=== PATIENT | male | born 1955 | race Caucasian/White ===

== ENCOUNTER 2017-10-30 15:56 | Emergency (ER) | payer MEDICARE, MEDICAID ==
--- NOTE | 2017-10-30 16:14 | ED ---
Shortness of Breath - HPI Summary HPI Summary: This is portia Espinosa documenting for attending Jay Jay Chirinos MD. This patient is a 62 year old M BIBA to [facility] with a chief complaint of SOB when he awoke this afternoon. The patient rates the pain 0/10 in severity. Symptoms alleviated by NC O2. Patient reports anxiety and cough. Patient denies fever and increased edema from baseline. Pt has a history of sleep apnea but his CPAP has been broken for a month. He states he has called but they have not replaced it, this has caused sleep disturbances. Pt believes that the SOB is due to this. No hx of CHF of COPD - History of Current Complaint Chief Complaint: EDShortnessOfBreath Time Seen by Provider: 10/30/17 16:08 Hx Obtained From: Patient Onset/Duration: Lasting Hours, Still Present Timing: Constant Current Severity: Mild Dyspnea At: Rest - Allergy/Home Medications Allergies/Adverse Reactions: Allergies Allergy/AdvReac Type Severity Reaction Status Date / Time metformin Allergy See Comment Verified 10/30/17 16:01 lycra Allergy Blisters Uncoded 10/30/17 16:01 PMH/Surg Hx/FS Hx/Imm Hx Endocrine/Hematology History: Reports: Hx Diabetes Cardiovascular History: Denies: Hx Congestive Heart Failure Respiratory History: Reports: Hx Sleep Apnea Denies: Hx Chronic Obstructive Pulmonary Disease (COPD) GI History: Denies: Hx Gastrointestinal Bleed Musculoskeletal History: Denies: Hx Congenital Bone Abnormalities Psychiatric History: Denies: Hx Attention Deficit Hyperactivity Disorder - Surgical History Surgery Procedure, Year, and Place: tumor removed from spine, hernia repair Infectious Disease History: No Infectious Disease History: Denies: Traveled Outside the [place] in Last 30 Days - Family History Known Family History: Positive: Cardiac Disease, Hypertension, Diabetes Negative: Renal Disease, Respiratory Disease, Seizure Disorder, Blood Disorder - Social History Alcohol Use: Occasionally Substance Use Type: Reports: None Smoking Status (MU): Heavy Every Day Tobacco Smoker Review of Systems Negative: Fever Positive: Shortness Of Breath, Cough Negative: Edema All Other Systems Reviewed And Are Negative: Yes Physical Exam - Summary Physical Exam Summary: Appearance: morbidly obese, no pain distress Skin: warm, dry, reflects adequate perfusion Head/face: normal Eyes: EOMI, FLORES ENT: normal Neck: supple, non-tender, no JVD Respiratory: CTA, breath sounds present Cardiovascular: RRR, pulses symmetrical Abdomen: non-tender, soft Bowel Sounds: present Musculoskeletal: 3+ bilateral pitting edema, strength/ROM intact Neuro: normal, sensory motor intact, A&Ox3 Triage Information Reviewed: Yes Vital Signs On Initial Exam: Initial Vitals Temp Pulse Resp BP Pulse Ox 97.3 F 75 17 161/77 99 10/30/17 15:57 10/30/17 15:57 10/30/17 15:57 10/30/17 15:57 10/30/17 15:57 Vital Signs Reviewed: Yes Diagnostics - Vital Signs Vital Signs Temp Pulse Resp BP Pulse Ox 10/30/17 15:57 97.3 F 75 17 161/77 99 - Laboratory Result Diagrams: 10/30/17 16:15 10/30/17 16:15 Lab Statement: Any lab studies that have been ordered have been reviewed, and results considered in the medical decision making process. - Radiology CXR Radiology Interpretation Completed By: ED Physician - EKG 1641 EKG Rhythm: Sinus Rhythm - at 77 BPM EKG Interpretation: normal axis and normal intervals Re-Evaluation - Re-Evaluation First Eval Re-Evaluation Time: 17:11 Change: Unchanged Comment: The company that provides the patient with his CPAP was contacted and they have agreed to get in contact with him in the morning tomorrow during regular business hours. Course/Dx - Course Assessment/Plan: The patient is feeling better after medications. He was given medication for anxiety and a breathing treatment which resolved symptoms. He currently has an oxygen saturation of 97% on room air. [facility] will contact him in the morning to get him a new machine. He understand this and will work with them when the contact him. Patient is requesting an inhaler. - Diagnoses Provider Diagnoses: Anxiety, LINDA (obstructive sleep apnea), Dyspnea, Elevated blood pressure reading Discharge - Sign-Out/Discharge Documenting (check all that apply): Patient Departure - Discharge Plan Condition: Improved Disposition: HOME Prescriptions: Albuterol HFA INHALER* [Ventolin HFA Inhaler*] 1 - 2 puff INH Q4H PRN #1 mdi PRN Reason: Shortness Of Breath Patient Education Materials: Sleep Apnea (DC) Referrals: Farheen Almonte MD [Primary Care Provider] - Additional Instructions: Have your doctor check your blood pressure this week. [facility] should call you first thing in the morning to help you get a new CPAP machine. Return with increased difficulty breathing, fever, new symptoms or other concerns as discussed. Try to perform modest exercise daily up to 30 minutes. Cut back on smoking. Talk to about helping to quit smoking. - Billing Disposition and Condition Condition: IMPROVED Disposition: Home
[2017-10-30] MEDS ORDERED: Albuterol/Ipratropium NEB.SOL* Albuterol 2.5 MG/Ipratropium 0.5 MG 3 ML INH ONE (16:25)
[2017-10-30] MEDS ORDERED: LORazepam TAB(*) 1 MG PO ONE (16:26)
[2017-10-30 16:34] LABS: ABS Basophils 0.1 10^3/ul (0-0.2); ABS Eosinophils 0.1 10^3/ul (0-0.6); ABS Lymphocytes 1.9 10^3/ul (1.0-4.8); ABS Monocytes 0.5 10^3/ul (0-0.8); ABS Neutrophils 3.5 10^3/ul (1.5-7.7); ABS Nucleated RBC 0 10^3/ul; Eosinophil % 1.5 % (0-6); Hematocrit 41 % (42-52); Hemoglobin 13.6 g/dl (14.0-18.0); Lymphocyte % 30.9 % (25-47); Mean Corpuscular HGB Conc 34 g/dl (31-36); Mean Corpuscular Hemoglobin 31 pg (27-31); Mean Corpuscular Volume 92 fL (80-94); Nucleated Red Blood Cells % 0.1; Platelet Count 222 10^3/ul (150-450); Red Blood Count 4.41 10^6/ul (4.00-5.40); Red Cell Distribution Width 15 % (10.5-15)
[2017-10-30 16:40] LABS: INR 0.78 (0.77-1.02)
[2017-10-30 16:49] LABS: EGFR Non-African American 89.8 (>60)
--- NOTE | 2017-10-30 17:24 | RAD ---
Indication: Shortness of breath. 2 views of the chest demonstrate no mediastinal shift. Heart is of normal size and configuration. Lung morris are clear. IMPRESSION: No active cardiopulmonary disease is noted.
--- OUTSIDE RECORDS SUMMARY | 2017-10-30 17:53 | XMS REPORT ---
:1955 External Reference #:[id number] Author Organization Hiren Hooper M.D., [facility] Address [address] [place] [address] Phone [phone] Care Team Providers Name Role Phone Suzy LIRIANO, Farheen Care Team Information Blocking Machine Tender Unavailable Farheen Almonte MD Primary Care Physician Unavailable Payers Type Date Identification Numbers Payment Provider Subscriber Medicare Primary Policy Number: [id number] Medicare [facility] Zaid Dowyoung PayID: [id number] [address] [place] [address] Medicaid Policy Number: [id number] Medicaid [place] Zaid Jean PayID: [id number] [address] [place] [address] Problems Date Description Provider Status Onset: 07/20/2013 Type 1 diabetes mellitus Rob Vargas O.D. Active Onset: 07/25/2013 Borderline glaucoma Rob Vargas O.D. Active Onset: 12/12/2014 Ocular hypertension Rob Vargas O.D. Active Onset: 03/17/2015 Type 2 diabetes mellitus Rob Vargas O.D. Active Onset: 03/17/2015 Incipient senile cataract Rob Vargas O.D. Active Onset: 03/17/2015 Myopia Rob Vargas O.D. Active Onset: 03/17/2015 Regular astigmatism Rob Vargas O.D. Active Onset: 03/17/2015 Presbyopia Rob Vargas O.D. Active Family History Date Family Member(s) Problem(s) Comments Father due to ulcerated bowel () Father Glasses Mother Thyroid Disease Mother Cataract Mother Cancer Mother Heart Disease Mother HTN Social History Type Date Description Comments ETOH Use Rarely consumes alcohol Smoking Patient is a current smoker, smokes every day Allergies, Adverse Reactions, Alerts Date Description Reaction Status Severity Comments 09/23/2016 Metformin active Medications Medication Date Status Form Strength Qnty SIG Indications Ordering Provider Latanoprost 09/23 Active Solution 0.005% 7.5ml 1 drops H40.053 both eyes Tsang, OD every night Levemir Flextouch Active Solution 100Unit/M Inject 30 Unknown /0000 Pen-Injec L Units t Under The Skin Once Daily AT Dinner Amlodipine Active Tablets 5mg Take One Unknown Besylate /0000 Tablet By Mouth Every Day Atorvastatin Active Tablets 80mg Take One Unknown Calcium /0000 Tablet By Mouth Every Day Hydrochlorothiazid Active Tablets 25mg Take One Unknown e /0000 Tablet By Mouth Every Day as Directed Victoza Active Solution 18mg/3ML Inject Unknown /0000 Pen-Injec 0.6MG t Under The Skin Every Day Glyburide Active Tablets 5mg Unknown /0000 Lantus Solostar Active Solution 100Unit/M Stevanovic /0000 Pen-Injec L , Radomir t Latanoprost 09/11 Hx Solution 0.005% 2.5un instill 1 H40.003 its drop into Hooper, - both eyes M.D. 09/23 night No Active 03/13 Hx Unknown Medications /2013 - 03/13 Oxycodone/Acetamin Hx Tablets 5-325mg Unknown ophen / - 03/13 Sulfamethoxazole/T Hx Tablets 800-160mg Unknown rimethoprim DS / - 03/13 Amlodipine Hx Tablets 10mg Stevanovic Besylate /0000 , Radomir - 03/13 Ibuprofen 00 Hx Tablets 800mg Stevanovic /0000 , Radomir - 03/13 Alprazolam Hx Tablets 0.25mg Stevanovic /0000 , Radomir - 03/13 Sertraline HCL Hx Tablets 50mg Stevanovic /0000 , Radomir - 03/13 Simvastatin Hx Tablets 20mg Stevanovic /0000 , Radomir - 03/13 Niacin ER 00 Hx Tablets 500mg Stevanovic /0000 ER , Radomir - 03/13 Loratadine Hx Tablets 10mg Stevanovic /0000 , Radomir - 03/13 Ammonium Lactate Hx Lotion 12% Stevanovic /0000 , Radomir - 03/13 Alprazolam Hx Tablets 0.5mg Unknown /0000 - 03/13 Gemfibrozil Hx Tablets 600mg Stevanovic /0000 , Radomir - 03/13 Ipratropium Hx Solution 0.03% Stevanovic [place] /0000 , Radomir - 03/13 Niaspan Hx Tablets 500mg Stevanovic /0000 ER MD, Radomir - 03/13 Procardia Hx Capsules Unknown - 12/12 Ibuprofen Hx Tablets 800mg Stevanovic /0000 , Radomir - 12/12 Nifedical XL Hx Tablets 60mg 1 tab po Unknown ER 24HR daily - 12/12 Vital Signs Date Vital Result Comment 10/18/2017 Intraocular Pressure Right Eye 20 mmHg Intraocular Pressure Left Eye 20 mmHg 07/19/2017 Intraocular Pressure Right Eye 22 mmHg Intraocular Pressure Left Eye 21 mmHg 03/04/2017 Intraocular Pressure Right Eye 21 mmHg Intraocular Pressure Left Eye 21 mmHg 11/02/2016 Intraocular Pressure Right Eye 20 mmHg Intraocular Pressure Left Eye 20 mmHg 09/23/2016 Intraocular Pressure Right Eye 26 mmHg Intraocular Pressure Left Eye 25 mmHg 03/17/2015 Intraocular Pressure Right Eye 22 mmHg Intraocular Pressure Left Eye 22 mmHg 12/12/2014 Intraocular Pressure Right Eye 21 mmHg Intraocular Pressure Left Eye 19 mmHg 09/11/2014 Intraocular Pressure Right Eye 28 mmHg Intraocular Pressure Left Eye 27 mmHg 03/13/2014 Intraocular Pressure Right Eye 28 mmHg Intraocular Pressure Left Eye 27 mmHg 07/25/2013 Intraocular Pressure Right Eye 22 mmHg Intraocular Pressure Left Eye 22 mmHg Results Description No Information Procedures Date CPT Code Description Status 07/19/2017 01957 Oct, Optic Nerve Completed 07/19/2017 18751 Eye Exam Est Intermediate Completed 03/04/2017 45935 Eye Exam Est Intermediate Completed 11/02/2016 20774 Oct, Optic Nerve Completed 11/02/2016 25358 Visual Field Exam Extended, Unilateral Or Bilateral Completed 11/02/2016 61756 Eye Exam Est Intermediate Completed 09/23/2016 89437 Fundus Photography W/Interpretation & Report Completed 09/23/2016 44549 Ophthalmoscopy Subsequent Completed 09/23/2016 19046 Eye Exam Est Comprehensive Completed 03/17/2015 58981 Eye Exam Est Comprehensive Completed 03/17/2015 55398 Refraction Completed 03/17/2015 45917 Fundus Photography W/Interpretation & Report Completed 09/11/2014 09061 Oct, Optic Nerve Completed 09/11/2014 49449 Visual Field Exam Extended, Unilateral Or Bilateral Completed 09/11/2014 42466 Eye Exam Est Intermediate Completed 03/13/2014 43670 Fundus Photography W/Interpretation & Report Completed 03/13/2014 95876 Eye Exam Est Comprehensive Completed 07/25/2013 48149 Visual Field Exam Extended, Unilateral Or Bilateral Completed 07/25/2013 03369 Eye Exam Est Intermediate Completed 04/29/2011 72863 Fundus Photography W/Interpretation & Report Completed 04/29/2011 36315 Ophthalmoscopy Initial Completed 04/29/2011 56087 Eye Exam New Comprehensive Completed 04/29/2011 42802 Corneal Pachymetry, Unilateral/Bilateral Completed Encounters Type Date Location Provider CPT E/M Dx Office Visit 12/12/2014 3:15p Main Office Rob Vargas O.D. 02676 H40.053 Plan of Care Future Appointment(s):01/19/2018 1:45 pm - Rob Tsang OD at [id number] - Rob Tsang ODH40.053 Ocular hypertension, bilateralFollow up:3 mos VF
[2017-10-30 17:58] VITALS: BP 181/76
== END 2017-10-30 18:17 | disposition home or self-care (01) ==
LOC: ED 15:56
DX: R06.00 Dyspnea, unspecified (principal); F41.9 Anxiety disorder, unspecified; G47.33 Obstructive sleep apnea (adult) (pediatric); R03.0 Elevated blood-pressure reading, without diagnosis of hypertension; F17.200 Nicotine dependence, unspecified, uncomplicated; Z88.8 Allergy status to other drugs, medicaments and biological substances
CPT/HCPCS: 36415; 71046; 80053; 83605; 83880; 84484; 85025; 85610; 86140; 93005; 99283; A9270-GY

== ENCOUNTER 2018-07-14 12:29 | Inpatient (IN) | payer MEDICARE, MEDICAID ==
--- NOTE | 2018-07-14 12:39 | ED ---
Shortness of Breath - HPI Summary HPI Summary: Patient is a 62 y/o M presenting to ED via ambulance with complaints of SOB for the past two weeks. Provider in room at 1219, upon patient's arrival, to evaluate. EMS reports patient was 88 on RA, was given duoneb with improvement, placed on 6 L o2 and o2 sat improved to 94-96. Patient reports non-productive cough, feeling fatigued, and states that he feels hot. No Hx of COPD, CHF, or NM reported, but patient endorses Hx of sleep apnea. Patient uses sleep apnea machine at home but notes that he has not been using it for the past few weeks as it has been broken. When patient was being transferred onto hospital bed, he is noted to have 81 o2 sat RA. Patient's called EMS. Nothing is noted to aggravate Sx. On triage, pain is denied. Home medications and allergies are reviewed. Home Medications Atorvastatin* [Lipitor*] 80 mg PO DAILY 07/14/18 [History Confirmed 07/14/18] Hydrochlorothiazide TAB* [Hydrodiuril TAB*] 25 mg PO DAILY 07/14/18 [History Confirmed 07/14/18] Insulin Detemir [Levemir Flextouch] 15 unit SUBCUT BID 07/14/18 [History Confirmed 07/14/18] Latanoprost 0.005%* [Xalatan 0.005%*] 1 drop BOTH EYES QPM 07/14/18 [History Confirmed 07/14/18] Liraglutide (NF) [Victoza (NF)] 0.6 mg SUBCUT DAILY 07/14/18 [History Confirmed 07/14/18] Tamsulosin CAP* [Flomax CAP*] 0.4 mg PO DAILY 07/14/18 [History Confirmed ] amLODIPine TAB* [Norvasc 5 mg TAB*] 5 mg PO DAILY 07/14/18 [History Confirmed ] glyBURIDE TAB* [Diabeta TAB*] 5 mg PO DAILY 07/14/18 [History Confirmed 07/14/18 ] Allergies Allergy/AdvReac Type Severity Reaction Status Date / Time metformin Allergy See Comment Verified 10/30/17 16:01 lycra Allergy Blisters Uncoded 10/30/17 16:01 - History of Current Complaint Hx Obtained From: Patient, EMS Onset/Duration: Lasting Weeks - past 2 weeks, Still Present Timing: Constant Current Severity: None - pain denied Aggrevating Factors: Nothing Alleviating Factors: EMS Tx, Oxygen Associated Signs & Symptoms: Cough (Nonproductive), Fever - subjective, patient states that he feels warm - Allergy/Home Medications Allergies/Adverse Reactions: Allergies Allergy/AdvReac Type Severity Reaction Status Date / Time metformin Allergy See Comment Verified 10/30/17 16:01 lycra Allergy Blisters Uncoded 10/30/17 16:01 Home Medications: Home Medications Atorvastatin* [Lipitor*] 80 mg PO DAILY 07/14/18 [History Confirmed 07/14/18] Hydrochlorothiazide TAB* [Hydrodiuril TAB*] 25 mg PO DAILY 07/14/18 [History Confirmed 07/14/18] Insulin Detemir [Levemir Flextouch] 15 unit SUBCUT BID 07/14/18 [History Confirmed 07/14/18] Latanoprost 0.005%* [Xalatan 0.005%*] 1 drop BOTH EYES QPM 07/14/18 [History Confirmed 07/14/18] Liraglutide (NF) [Victoza (NF)] 0.6 mg SUBCUT DAILY 07/14/18 [History Confirmed 07/14/18] Tamsulosin CAP* [Flomax CAP*] 0.4 mg PO DAILY 07/14/18 [History Confirmed ] amLODIPine TAB* [Norvasc 5 mg TAB*] 5 mg PO DAILY 07/14/18 [History Confirmed ] glyBURIDE TAB* [Diabeta TAB*] 5 mg PO DAILY 07/14/18 [History Confirmed 07/14/18 ] PMH/Surg Hx/FS Hx/Imm Hx Endocrine/Hematology History: Reports: Hx Diabetes Cardiovascular History: Denies: Hx Congestive Heart Failure Respiratory History: Reports: Hx Sleep Apnea Denies: Hx Chronic Obstructive Pulmonary Disease (COPD) GI History: Denies: Hx Gastrointestinal Bleed Musculoskeletal History: Denies: Hx Congenital Bone Abnormalities Psychiatric History: Denies: Hx Attention Deficit Hyperactivity Disorder - Surgical History Surgery Procedure, Year, and Place: tumor removed from spine, hernia repair - Family History Known Family History: Positive: Cardiac Disease, Hypertension, Diabetes Negative: Renal Disease, Respiratory Disease, Seizure Disorder, Blood Disorder - Social History Alcohol Use: Occasionally Substance Use Type: Reports: None Smoking Status (MU): Heavy Every Day Tobacco Smoker Review of Systems Positive: Fever - subjective, patient reports feeling warm , Fatigue Positive: Shortness Of Breath, Cough - non productive All Other Systems Reviewed And Are Negative: Yes Physical Exam - Summary Physical Exam Summary: Appearance: Ill-appearing, no pain distress, obese, poor hygiene, strong odor of urine, speaks in short bursts, visibly fatigued Skin: Warm, color reflects adequate perfusion, dry Head: Normal Head/Face inspection, atraumatic Eyes: Conjunctiva clear ENT: Normal inspection Neck: Supple, no nodes, no JVD Respiratory: audible wheezes, expiratory wheezes throughout, speaks in short bursts Cardio: RRR, No murmur, pulses normal, brisk capillary refill Abdomen: Soft, nontender Bowel sounds: Present Musculoskeletal: Strength Intact/ROM intact, no calf tenderness. Non-pitting edema in lower extremities. Psychological: Normal Neuro: Alert, muscle tone normal, no focal deficit Triage Information Reviewed: Yes Vital Signs On Initial Exam: Initial Vitals Temp Pulse Resp BP Pulse Ox 99.1 F 97 28 118/84 96 07/14/18 12:35 07/14/18 12:35 07/14/18 12:35 07/14/18 12:35 07/14/18 12:35 Vital Signs Reviewed: Yes Diagnostics - Laboratory Result Diagrams: 07/14/18 12:41 07/14/18 12:41 Lab Statement: Any lab studies that have been ordered have been reviewed, and results considered in the medical decision making process. - Radiology CHEST X-RAY Radiology Interpretation Completed By: Radiologist Summary of Radiographic Findings: IMPRESSION: PULMONARY VASCULAR CONGESTION. THIS REPORT WAS REVIEWED BY DR. WALKER. - EKG 1339 Cardiac Rate: NL - rate of 97 BPM EKG Rhythm: Sinus Rhythm ST Segment: Non-Specific Summary of EKG Findings: EKG showed sinus rhythm with rate of 97 BPM, normal AVIVCT, normal QTc, non-specific ST, no acute changes. Re-Evaluation - Re-Evaluation First Eval Re-Evaluation Time: 13:42 Comment: Aware of trop of 0.05 at this time. Course/Dx - Course Course Of Treatment: Patient is a 62 y/o M presenting to ED via ambulance with complaints of SOB for the past two weeks. Provider in room at 1219, upon patient 's arrival, to evaluate. EMS reports patient was 88 on RA, was given duoneb with improvement, placed on 6 L o2 and o2 sat improved to 94-96. Patient reports non-productive cough, feeling fatigued, and states that he feels hot. No Hx of COPD, CHF, or NM reported, but patient endorses Hx of sleep apnea. Patient uses sleep apnea machine at home but notes that he has not been using it for the past few weeks as it has been broken. When patient was being transferred onto hospital bed, he is noted to have 81 o2 sat RA. On physical exam, patient is noted to be ill-appearing with poor hygeine, strong odor of urine. Patient is obese, speaking in short bursts, appears fatigued. Audible wheezes, expiratory wheezes throughout. Non-pitting edema in the lower extremities. CXR IMPRESSION: PULMONARY VASCULAR CONGESTION. EKG showed sinus rhythm with rate of 97 BPM, normal AVIVCT, normal QTc, non-specific ST, no acute changes. Labs showed WBC 7, Hgb 13.8, D-dimer 305, sodium 131, potassium 2.9, chloride 90, BUN/creatinine 21.5, glucose 240, lactic acid 1.1, calcium 8.5 , AST 151, ALT 71, total creatinine kinase 7711, CK-MB 9, trop 0.05, CRP 322.49 , BNP 59. First ABG showed pH 7.5, pO2 121, HCO3 32.1, O2 sat 98.5, base excess 9.2. Second ABG showed 7.47 pH pCO2 49, pO2 51, HCO3 32.7, O2 saturation 86.1, base excess 10.4. During ED course, patient received duoneb 1 neb INH, potassium chloride 10 meq/50 ml Ivpremix, 2 bags ordered. Patient's case was discussed with Dr. Campoverde at 1353, Dr. Campoverde accepts for admission. - Diagnoses Provider Diagnoses: Respiratory distress, Hypoxia, Hypokalemia, Elevated CK, Poorly controlled diabetes mellitus - Physician Notifications Discussed Care of Patient With: Odilia Campoverde Time Discussed With Above Provider: 13:53 Instructed by Provider To: Other - Patient's case was discussed with Dr. Campoverde at 1353, Dr. Campoverde accepts for admission. Discharge - Sign-Out/Discharge Documenting (check all that apply): Patient Departure - admit All imaging exams completed and their final reports reviewed: Yes Patient Received Moderate/Deep Sedation with Procedure: No - Discharge Plan Condition: Good Disposition: ADMITTED TO [facility] - Attestation Statements Document Initiated by Scribe: Yes Documenting Scribe: MAMADOU SANDERSON Provider For Whom Scribe is Documenting (Include Credential): KIMBERLY WALKER MD Scribe Attestation: MAMADOU Dickey, scribed for KIMBERLY WALKER MD on 07/14/18 at 1915. Status of Scribe Document: Ready
[2018-07-14] MEDS ORDERED: Albuterol/Ipratropium NEB.SOL* Albuterol 2.5 MG/Ipratropium 0.5 MG 3 ML INH ONE (12:40)
[2018-07-14 12:58] LABS: ABS Basophils 0 10^3/ul (0-0.2); ABS Eosinophils 0 10^3/ul (0-0.6); ABS Lymphocytes 1.1 10^3/ul (1.0-4.8); ABS Monocytes 0.5 10^3/ul (0-0.8); ABS Neutrophils 5.4 10^3/ul (1.5-7.7); ABS Nucleated RBC 0 10^3/ul; Eosinophil % 0 %; Hematocrit 40 % (36-46); Hemoglobin 13.8 g/dL (14.0-18.0); Lymphocyte % 15.9 %; Mean Corpuscular HGB Conc 34 g/dL (31-36); Mean Corpuscular Hemoglobin 30 pg (27-31); Mean Corpuscular Volume 89 fL (80-94); Mean Platelet Volume 9.7 fL (7.4-10.4); Nucleated Red Blood Cells % 0; Platelet Count 171 10^3/uL (150-450); Red Blood Count 4.56 10^6 /uL (4.18-5.48); Red Cell Distribution Width 14 % (10.5-15)
[2018-07-14 13:05] LABS: INR 1.01 (0.77-1.02)
[2018-07-14 13:32] LABS: Albumin 3.4 g/dL (3.2-5.2); BUN/Creatinine Ratio 21.5 (8-20); C Reactive Protein 322.49 mg/L (<8.01); Calcium 8.5 mg/dL (8.6-10.3); EGFR African American 84.5 (>60); EGFR Non-African American 69.8 (>60); Globulin 3.3 g/dL (2-4); Potassium 2.9 mmol/L (3.5-5.0); Total Bilirubin 0.7 mg/dL (0.2-1.0); Total Protein 6.7 g/dL (6.4-8.9)
[2018-07-14 13:39] LABS: Troponin I 0.05 ng/mL (<0.04)
[2018-07-14] MEDS: KCL 10 MEQ/50 ML IVPREMIX* 10 MEQ/50 ML BAG IV SCH ×4 (14:40→20:38)
[2018-07-14 14:43] LABS: Influenza A Molecular POSITIVE (Negative)
[2018-07-14] MEDS ORDERED: PROCHLORPERAZINE INJ 5 MG/ML 2 ML VIAL IV PRN (15:07)
[2018-07-14] MEDS ORDERED: Acetaminophen TAB* 325 MG PO PRN (15:07)
[2018-07-14] MEDS ORDERED: Dextrose 50% Syringe 50 ML* 25 GM/50 ML SYRINGE IV PUSH PRN (15:09)
[2018-07-14] MEDS: Oseltamivir CAP* 75 MG CAP PO SCH ×2 (15:54→21:37)
[2018-07-14 16:25] LABS: Troponin I 0.04 ng/mL (<0.04)
[2018-07-14] MEDS: Enoxaparin(*) 40 MG/0.4 ML SYR SUBCUT SCH (17:11)
--- NOTE | 2018-07-14 18:03 | HP ---
CC: Dr. Almonte; Dr. Delgado HISTORY AND PHYSICAL: DATE OF ADMISSION: 07/14/18 TIME OF EVALUATION: 2:50 p.m. PRIMARY CARE PROVIDER: Dr. Almonte. CONSULTING MAGNETIC PROSPECTING OPERATOR: Dr. Delgado. CHIEF COMPLAINT: Shortness of breath. HISTORY OF PRESENT ILLNESS: Mr. Jean is a 62-year-old male with a past medical history of morbid ob esity with a BMI of 58; type 2 diabetes, on insulin; obstructive sleep apnea; hypertension; hyperlipi demia; colon polyps; tobacco abuse, who presents to the emergency room, brought in by EMS with respir atory distress. At the time of my evaluation, the patient has BiPAP on and he and his are very p oor historians. As far as I can ascertain, the patient has been feeling poorly for 3 weeks and his symptoms have beco me progressively worse. The describes that he was weak and has spent a long time "just lying in his recliner." She states that he soiled himself and was unable to clean himself up. He has become progressively short of breath and had productive cough to the point that for the past 3 days, he has smoked just 1 or 2 cigarettes. He denies fever, chills, nausea, vomiting, diarrhea, but his de scribes that he has been incontinent of urine and stool. He denies chest pain or palpitations. He states that she encouraged him to take care by his [facility] care provider, but he refused and today the shortness of breath got really severe and they moralez d EMS and he was brought into the hospital. As per ED RN (Rosaura White), EMS called Adult Protective Services because the house was described in poor condition with dangerous hoarding situation with "piles of stuff up to the ceiling," multiple ca ts with a strong smell of urine. PAST MEDICAL HISTORY: 1. Morbid obesity with a BMI of 58. 2. Type 2 diabetes. 3. Hypertension. 4. Hyperlipidemia. 5. Obstructive sleep apnea, the patient states his CPAP is broken. 6. Colon polyps, status post colonoscopy and resection at [facility] more than 10 years ago. 7. PTSD. MEDICATION LIST: 1. Amlodipine 5 mg p.o. daily. 2. Atorvastatin 80 mg p.o. daily. 3. Glyburide 5 mg p.o. daily. 4. Hydrochlorothiazide 25 mg p.o. daily. 5. Levemir 15 units subcutaneously b.i.d. 6. Xalatan 0.005% one drop to both eyes at bedtime. 7. Victoza 0.6 mg subcutaneously daily. 8. Tamsulosin 0.4 mg p.o. daily. ALLERGIES: With METFORMIN, the patient had increased lactic acid and with LYCRA, he experienced blis ters. FAMILY HISTORY: Positive for ulcerative colitis. SOCIAL HISTORY: The patient is a smoker since he was a teenager up to 1-1/2 packs a day. He continu ed to smoke through his 3 weeks of shortness of breath and had to cut down a couple days ago. As per , he used to drink a lot, but 8 years ago, he quit. There is no history of drug use. Surrogate decision maker is his , Anna Marie Jean, phone number is [phone]. As described in the HPI, there are concerns for their living situation not only the sanitary situation, but also [facility]. PHYSICAL EXAMINATION GENERAL: The patient is a morbidly obese gentleman, sitting up in the ED stretcher with BiPAP in [facility], in no acute distress. VITAL SIGNS: Temperature 99.1, heart rate is 94, respiratory rate is 20, oxygen saturation is 95% on BiPAP with FiO2 of 50%. HEENT: Pupils are equal. NECK: Short and obese. CHEST: Barrel chest with breath sounds present bilaterally and faint wheezing. ABDOMEN: Morbidly obese with multiple excoriations around the area. Physical examination is very li mited due to his size. EXTREMITIES: There is bilateral lower extremity edema and poor overall hygiene. NEURO: He is alert and oriented x3. He is able to move all 4 extremities and follow commands. DIAGNOSTIC STUDIES/LAB DATA: The patient had a CBC that showed a WBC of 7, hemoglobin of 13.8, donna tocrit of 40, platelets of 171 with 76% neutrophils. INR is 1.01. D-dimer was 305. ABG showed pH o f 7.5 with a pCO2 of 43, paO2 of 121, bicarb of 32, oxygen saturation of 98% and this was done on BiP AP. Chemistry showed a sodium of 131, potassium of 2.9, chloride of 90, bicarb of 32, BUN of 23, cre atinine of 1.07, glucose of 240, lactic acid is 1.1, calcium is 8.5. LFTs showed total bilirubin of 0.7, AST of 151, ALT of 71, alk phos of 69. CPK is 7711, CK-MB is 9, troponin is 0.05, CRP is 322.4, BNP is 59. Influenza A was positive. EKG done on 07/14/18 at 1:39 p.m. showed sinus rhythm at 97 beats per minute with no acute ischemic c hanges. No significant change when compared to his prior EKG from October 2017. Chest x-ray shows pulmonary vascular congestion and there is poor inspiratory effort. So within the limitations of the study, I agree with this reading. ASSESSMENT AND PLAN: Mr. Jean is a 62-year-old male with a past medical history of morbid obesity w ith a BMI of 58; type 2 diabetes; hypertension; hyperlipidemia; obstructive sleep apnea, not on CPAP; colonic polyps; benign prostatic hypertrophy; posttraumatic stress disorder, who presents to the [facility] with complaints of 3 weeks of progressive shortness of breath and cough, who arrives in [facility] emergency room in respiratory distress requiring rescue BiPAP. 1. Acute hypoxemic respiratory failure. Suspect this is multifactorial. He has influenza A and pro bable chronic obstructive pulmonary disease exacerbation, although he was never formally diagnosed wi chronic obstructive pulmonary disease. I also suspect he has obesity hypoventilation syndrome on top of his untreated obstructive sleep apnea. The patient will be admitted to the intensive care [facility] to continue his rescue BiPAP. I discussed with him that if he does not improve, he may require int ubation and he is in agreement with it, "do what you gotta do." 2. Influenza A. The patient will be started on Tamiflu. 3. Acute chronic obstructive pulmonary disease exacerbation. The patient has been a smoker half-a-p ack a day for more than 40 years and although, he has never been diagnosed with chronic obstructive p ulmonary disease, he appears to have it clinically. This exacerbation is caused by influenza. His x -ray showed some vascular congestion, but no discrete infiltrate. He will be continued on bronchodil ators. He will receive steroids, but I do not think antibiotics are indicated at this time. He did meet SIRS criteria with tachycardia and tachypnea, but I believe those were driven mostly by his resp iratory failure and not by sepsis. In any case, I think the source of his infection is viral and I d o not think antibiotics are indicated at this time. 4. Type 2 diabetes. The patient states that he is compliant with his insulin and Victoza. He will be n.p.o. for now due to his respiratory status, so we will give him a low-dose insulin and cover wit h a lispro sliding scale. We will check hemoglobin A1c. 5. Hypertension. It is controlled at this time. I will continue his amlodipine and monitor his blo od pressure. 6. Rhabdomyolysis. Suspect this is secondary to the fact of this morbidly obese patient being confi romain to his recliner for a long time as his states that he was not able to get up and was even in continent. He will receive gentle IV hydration and we will monitor his enzymes and renal function as well as urine output. 7. Possible cor pulmonale. The patient has a long history of tobacco abuse. He has lower extremity edema, mild LFT elevation and this could be secondary to cor pulmonale. His BNP is 59. At this poi nt, with his rhabdomyolysis, I am going to give him gentle IV hydration, but as this improves, we may need to pursue diuresis. I am going to check an echocardiogram to assess his right and left ventricu lar function. 8. Troponin elevation. Suspect this is demand ischemia in the setting of respiratory failure, influ christian, and rhabdomyolysis. The patient has no complaints of chest pain and his EKG shows no acute isc hemic changes. We will add an aspirin and we will trend his troponins. An echocardiogram will be or dered as described above and we will look for wall motion abnormalities. 9. Transaminitis. This could be secondary to fatty liver as the patient is diabetic and morbidly ob blanca. It could be also associated with cor pulmonale with his probable chronic obstructive pulmonary disease. We will check hepatitis serology and when his respiratory status is more stable, we can thi nk about doing a liver ultrasound, but this may be a limited study due to his size. His rhabdomyolys is may also be playing a role in the increase of his transaminases. 10. Hypokalemia. We will replete. 11. Elevated D-dimer. My suspicion for pulmonary embolism is low. I suspect his respiratory failur e is secondary to chronic obstructive pulmonary disease exacerbation and influenza and his D-dimer is only mildly elevated. 12. Skin yeast infection. The patient has poor hygiene and moist secretions in his folds. We will provide hygiene and nystatin. 13. Concern for living conditions. As described in HPI, the patient's home is described as "full of stuff up to the ceiling" and there is concern for the hygiene and structural soundness of the home. A social worker school consultation will be requested. 14. DVT prophylaxis: The patient has a score of 5 on the DVT Prophylaxis Risk Assessment Guide and he will be started on Lovenox. We will avoid SCDs for now due to his lower extremity edema, but as h e continues to improve, we may be able to add it later on. 15. Code status was discussed with the patient. He wishes to be a full code and he is agreeable wit h intubation if necessary. TIME SPENT: Approximately 60 minutes of critical care time was spent to complete this admission. [id number]/CPS #: [id number]
[2018-07-14 18:21] LABS: Glucose 192 mg/dL (70-100)
[2018-07-14 18:32] LABS: Troponin I 0.05 ng/mL (<0.04)
[2018-07-14] MEDS: methylPREDNISolone SOD 40 MG* 1 ML VIAL IV SCH (18:33)
[2018-07-14] MEDS: Insulin LISPRO* 1 UNITS UNIT SUBCUT SCH (18:36)
[2018-07-14] MEDS: Latanoprost 0.005%* 2.5 ml BTL BOTH EYES SCH (18:36)
[2018-07-14 18:40] LABS: Creatine Kinase 6592 U/L (10-223)
[2018-07-14] MEDS: Albuterol/Ipratropium NEB.SOL* Albuterol 2.5 MG/Ipratropium 0.5 MG 3 ML INH SCH ×2 (20:26→23:30)
[2018-07-14] MEDS: Nystatin TOP POWDER* 15 GM BTL TOPICAL SCH (21:37)
[2018-07-14] MEDS: Insulin GLARGINE(*) 1 UNITS UNIT SUBCUT SCH (21:37)
[2018-07-15] MEDS: Insulin LISPRO* 1 UNITS UNIT SUBCUT SCH ×4 (00:55→21:31)
[2018-07-15] MEDS: Albuterol/Ipratropium NEB.SOL* Albuterol 2.5 MG/Ipratropium 0.5 MG 3 ML INH SCH ×4 (03:22→19:07)
[2018-07-15 04:14] LABS: ABS Basophils 0 10^3/ul (0-0.2); ABS Eosinophils 0 10^3/ul (0-0.6); ABS Lymphocytes 0.5 10^3/ul (1.0-4.8); ABS Monocytes 0.4 10^3/ul (0-0.8); ABS Neutrophils 4.5 10^3/ul (1.5-7.7); ABS Nucleated RBC 0 10^3/ul; Eosinophil % 0 %; Hematocrit 41 % (36-46); Hemoglobin 13.6 g/dL (14.0-18.0); Lymphocyte % 9.5 %; Mean Corpuscular HGB Conc 33 g/dL (31-36); Mean Corpuscular Hemoglobin 30 pg (27-31); Mean Corpuscular Volume 90 fL (80-94); Mean Platelet Volume 9.8 fL (7.4-10.4); Nucleated Red Blood Cells % 0; Platelet Count 174 10^3/uL (150-450); Red Blood Count 4.54 10^6 /uL (4.18-5.48); Red Cell Distribution Width 14 % (10.5-15); White Blood Count 5.4 10^3/uL (3.5-10.8)
[2018-07-15 04:31] LABS: BUN/Creatinine Ratio 26.5 (8-20); Calcium 8.5 mg/dL (8.6-10.3); EGFR African American 89.3 (>60); EGFR Non-African American 73.8 (>60); Potassium 3.3 mmol/L (3.5-5.0)
[2018-07-15] MEDS: Lactated Ringers 1000 ML Bag* 1,000 ML IV SCH ×2 (04:41→14:44)
[2018-07-15] MEDS: methylPREDNISolone SOD 40 MG* 1 ML VIAL IV SCH (06:38)
[2018-07-15] MEDS: Tamsulosin CAP* 0.4 MG PO SCH (07:49)
[2018-07-15] MEDS: Insulin GLARGINE(*) 1 UNITS UNIT SUBCUT SCH ×2 (07:50→21:31)
[2018-07-15] MEDS: Oseltamivir CAP* 75 MG CAP PO SCH ×2 (07:50→21:27)
[2018-07-15] MEDS: amLODIPine TAB* 5 MG PO SCH (07:50)
[2018-07-15] MEDS: Atorvastatin* 80 MG TAB PO SCH (07:50)
[2018-07-15] MEDS: Aspirin EC TAB* 81 MG TAB.EC PO SCH (07:50)
--- NOTE | 2018-07-15 11:32 | PN ---
Date of Service: 07/15/18 Critical Care Services: Up in a chair this AM and breathing comfortably. No specific complaints (other than discomfort of kaiser cath). Being treated for influenza because of positive serology. Vital Signs: Temp Pulse Resp BP SpO2 FiO2 99.5 F 90 19 150/89 92 50 Physical Exam: Gen:Alert, oriented. Appears comfortable. Lungs:BS distant. No adventitious sounds. Cardiac: No murmurs. Abdomen: Obese Extremities: No cyanosis. 3+edema both LEs. Skin: Multiple supperficial excoriations Fluid Balance (Past 24 Hours): 07/15/18 06:59 Intake Total 632 Output Total 1225 Balance -593 Weight 367 lb Intake: IV Fluids 632 KCL 161 LR 300 NS (0.9%) 121 Oral Output: Kaiser 1225 Other: # Bowel Movements Estimated Stool Amount Labs: 07/14/18 07/14/18 07/14/18 12:30 12:41 12:41 WBC 7.0 RBC 4.56 Hgb 13.8 L Hct 40 MCV 89 MCH 30 MCHC 34 RDW 14 Plt Count 171 MPV 9.7 Neut % (Auto) 76.7 Lymph % (Auto) 15.9 Forrest % (Auto) 7.1 Eos % (Auto) 0 Baso % (Auto) 0.3 Absolute Neuts (auto) 5.4 Absolute Lymphs (auto) 1.1 Absolute Monos (auto) 0.5 Absolute Eos (auto) 0 Absolute Basos (auto) 0 Absolute Nucleated RBC 0 Nucleated RBC % 0 INR (Anticoag Therapy) APTT D-Dimer, Quantitative Patient Temperature ABG pH ABG pH (Temp Correct) ABG pCO2 ABG pCO2 (Temp Corrct ABG pO2 ABG pO2 (Temp Correct ABG HCO3 ABG O2 Saturation ABG Base Excess Respiration Rate O2 Delivery Device Ventilator Type Vent Mode FiO2 Inspiratory Time PEEP Pressure Support Pressure Control EPAP IPAP BiPAP Sodium 131 L Potassium 2.9 L Chloride 90 L Carbon Dioxide 32 Anion Gap 9 BUN 23 Creatinine 1.07 Est GFR ( Amer) 84.5 Est GFR (Non-Af Amer) 69.8 BUN/Creatinine Ratio 21.5 H Glucose 240 H POC Glucose (mg/dL) Hemoglobin A1c Lactic Acid Calcium 8.5 L Total Bilirubin 0.70 AST 151 H ALT 71 H Alkaline Phosphatase 69 Total Creatine Kinase 7711 CK-MB (CK-2) 9.0 H Troponin I 0.05 C-Reactive Protein 322.49 B-Natriuretic Peptide Total Protein 6.7 Albumin 3.4 Globulin 3.3 Albumin/Globulin Ratio 1.0 Influenza A (Rapid) Positive A 07/14/18 07/14/18 07/14/18 12:41 12:41 12:41 WBC RBC Hgb Hct MCV MCH MCHC RDW Plt Count MPV Neut % (Auto) Lymph % (Auto) Forrest % (Auto) Eos % (Auto) Baso % (Auto) Absolute Neuts (auto) Absolute Lymphs (auto) Absolute Monos (auto) Absolute Eos (auto) Absolute Basos (auto) Absolute Nucleated RBC Nucleated RBC % INR (Anticoag Therapy) 1.01 APTT 34.0 D-Dimer, Quantitative 305 H Patient Temperature ABG pH ABG pH (Temp Correct) ABG pCO2 ABG pCO2 (Temp Corrct ABG pO2 ABG pO2 (Temp Correct ABG HCO3 ABG O2 Saturation ABG Base Excess Respiration Rate O2 Delivery Device Ventilator Type Vent Mode FiO2 Inspiratory Time PEEP Pressure Support Pressure Control EPAP IPAP BiPAP Sodium Potassium Chloride Carbon Dioxide Anion Gap BUN Creatinine Est GFR ( Amer) Est GFR (Non-Af Amer) BUN/Creatinine Ratio Glucose POC Glucose (mg/dL) Hemoglobin A1c Lactic Acid 1.1 Calcium Total Bilirubin AST ALT Alkaline Phosphatase Total Creatine Kinase CK-MB (CK-2) Troponin I C-Reactive Protein B-Natriuretic Peptide 59 Total Protein Albumin Globulin Albumin/Globulin Ratio Influenza A (Rapid) 07/14/18 07/14/18 07/14/18 12:56 13:07 15:51 WBC RBC Hgb Hct MCV MCH MCHC RDW Plt Count MPV Neut % (Auto) Lymph % (Auto) Forrest % (Auto) Eos % (Auto) Baso % (Auto) Absolute Neuts (auto) Absolute Lymphs (auto) Absolute Monos (auto) Absolute Eos (auto) Absolute Basos (auto) Absolute Nucleated RBC Nucleated RBC % INR (Anticoag Therapy) APTT D-Dimer, Quantitative Patient Temperature Not Reportable Cancelled ABG pH 7.50 H Cancelled ABG pH (Temp Correct) Not Reportable Cancelled ABG pCO2 43 Cancelled ABG pCO2 (Temp Corrct Not Reportable Cancelled ABG pO2 121 H Cancelled ABG pO2 (Temp Correct Not Reportable Cancelled ABG HCO3 32.1 H Cancelled ABG O2 Saturation 98.5 H Cancelled ABG Base Excess 9.2 H Cancelled Respiration Rate 10 Cancelled O2 Delivery Device Bipap Cancelled Ventilator Type Not Reportable Cancelled Vent Mode Not Reportable Cancelled FiO2 50 Cancelled Inspiratory Time Not Reportable Cancelled PEEP Not Reportable Cancelled Pressure Support Not Reportable Cancelled Pressure Control Not Reportable Cancelled EPAP 6 Cancelled IPAP 12 Cancelled BiPAP Not Reportable Cancelled Sodium Potassium Chloride Carbon Dioxide Anion Gap BUN Creatinine Est GFR ( Amer) Est GFR (Non-Af Amer) BUN/Creatinine Ratio Glucose POC Glucose (mg/dL) Hemoglobin A1c Lactic Acid Calcium Total Bilirubin AST ALT Alkaline Phosphatase Total Creatine Kinase CK-MB (CK-2) Troponin I 0.04 H* C-Reactive Protein B-Natriuretic Peptide Total Protein Albumin Globulin Albumin/Globulin Ratio Influenza A (Rapid) 07/14/18 07/14/18 07/15/18 17:47 21:30 00:41 WBC RBC Hgb Hct MCV MCH MCHC RDW Plt Count MPV Neut % (Auto) Lymph % (Auto) Forrest % (Auto) Eos % (Auto) Baso % (Auto) Absolute Neuts (auto) Absolute Lymphs (auto) Absolute Monos (auto) Absolute Eos (auto) Absolute Basos (auto) Absolute Nucleated RBC Nucleated RBC % INR (Anticoag Therapy) APTT D-Dimer, Quantitative Patient Temperature ABG pH ABG pH (Temp Correct) ABG pCO2 ABG pCO2 (Temp Corrct ABG pO2 ABG pO2 (Temp Correct ABG HCO3 ABG O2 Saturation ABG Base Excess Respiration Rate O2 Delivery Device Ventilator Type Vent Mode FiO2 Inspiratory Time PEEP Pressure Support Pressure Control EPAP IPAP BiPAP Sodium Potassium Chloride Carbon Dioxide Anion Gap BUN Creatinine Est GFR ( Amer) Est GFR (Non-Af Amer) BUN/Creatinine Ratio Glucose 192 H POC Glucose (mg/dL) 209 H 304 H Hemoglobin A1c Lactic Acid Calcium Total Bilirubin AST ALT Alkaline Phosphatase Total Creatine Kinase 6592 H CK-MB (CK-2) Troponin I 0.05 H* C-Reactive Protein B-Natriuretic Peptide Total Protein Albumin Globulin Albumin/Globulin Ratio Influenza A (Rapid) 07/15/18 07/15/18 07/15/18 04:03 04:03 04:03 WBC 5.4 RBC 4.54 Hgb 13.6 L Hct 41 MCV 90 MCH 30 MCHC 33 RDW 14 Plt Count 174 MPV 9.8 Neut % (Auto) 83.9 Lymph % (Auto) 9.5 Forrest % (Auto) 6.5 Eos % (Auto) 0 Baso % (Auto) 0.1 Absolute Neuts (auto) 4.5 Absolute Lymphs (auto) 0.5 L Absolute Monos (auto) 0.4 Absolute Eos (auto) 0 Absolute Basos (auto) 0 Absolute Nucleated RBC 0 Nucleated RBC % 0 INR (Anticoag Therapy) APTT D-Dimer, Quantitative Patient Temperature ABG pH ABG pH (Temp Correct) ABG pCO2 ABG pCO2 (Temp Corrct ABG pO2 ABG pO2 (Temp Correct ABG HCO3 ABG O2 Saturation ABG Base Excess Respiration Rate O2 Delivery Device Ventilator Type Vent Mode FiO2 Inspiratory Time PEEP Pressure Support Pressure Control EPAP IPAP BiPAP Sodium 138 Potassium 3.3 L Chloride 96 L Carbon Dioxide 30 Anion Gap 12 H BUN 27 H Creatinine 1.02 Est GFR ( Amer) 89.3 Est GFR (Non-Af Amer) 73.8 BUN/Creatinine Ratio 26.5 H Glucose 290 H POC Glucose (mg/dL) Hemoglobin A1c 11.5 H Lactic Acid Calcium 8.5 L Total Bilirubin AST ALT Alkaline Phosphatase Total Creatine Kinase 5159 H CK-MB (CK-2) Troponin I C-Reactive Protein B-Natriuretic Peptide Total Protein Albumin Globulin Albumin/Globulin Ratio Influenza A (Rapid) Studies: None today Nutrition: Oral diet Impression: Clinically stable. CPK declining, and no evidence of renal injury. Plan: 1. Continue hydration. 2. D/C IV steroids (which should improve glycemic control). 3. Continue Rx for Influenza Critical Care Time: 40 minutes
[2018-07-15 11:59] LABS: Hepatitis B Surface Antigen Nonreactive (Nonreactive)
[2018-07-15 12:21] LABS: Hepatitis C Antibody Nonreactive (Nonreactive)
[2018-07-15] MEDS: Nystatin TOP POWDER* 15 GM BTL TOPICAL SCH ×3 (12:36→21:32)
[2018-07-15] MEDS: Potassium Chloride LIQUID* 20 MEQ PACKET PO SCH (14:44)
[2018-07-15] MEDS: Enoxaparin(*) 40 MG/0.4 ML SYR SUBCUT SCH (16:16)
--- NOTE | 2018-07-15 17:31 | PN ---
Hospitalist Progress Note Date of Service: 07/15/18 HOSPITALIST ADDENDUM Called by RN because patient was more dyspneic and required BiPAP briefly. Now comfortable on nasal cannula 5 liters. Re-evaluated by Dr Delgado at bedside - patient stable to be on 4N at this time, but if decompensates/desaturates will transfer to ICU again. Will continue to monitor in 4N. S/o to Dr Cole.
[2018-07-15] MEDS: Albuterol/Ipratropium NEB.SOL* Albuterol 2.5 MG/Ipratropium 0.5 MG 3 ML INH PRN (17:32)
[2018-07-15] MEDS ORDERED: Insulin LISPRO* 1 UNITS UNIT SUBCUT ONE (18:01)
[2018-07-15] MEDS: Latanoprost 0.005%* 2.5 ml BTL BOTH EYES SCH (18:17)
[2018-07-16] MEDS: Lactated Ringers 1000 ML Bag* 1,000 ML IV SCH ×3 (01:40→21:11)
[2018-07-16] MEDS: Albuterol/Ipratropium NEB.SOL* Albuterol 2.5 MG/Ipratropium 0.5 MG 3 ML INH SCH ×4 (01:46→19:42)
[2018-07-16 06:20] LABS: BUN/Creatinine Ratio 35.6 (8-20); Calcium 8.7 mg/dL (8.6-10.3); EGFR African American 90.3 (>60); EGFR Non-African American 74.6 (>60); Magnesium 2.5 mg/dL (1.9-2.7); Potassium 3.4 mmol/L (3.5-5.0)
[2018-07-16] MEDS: amLODIPine TAB* 5 MG PO SCH (09:40)
[2018-07-16] MEDS: Atorvastatin* 80 MG TAB PO SCH (09:40)
[2018-07-16] MEDS: Oseltamivir CAP* 75 MG CAP PO SCH ×2 (09:40→21:03)
[2018-07-16] MEDS: Potassium Chloride LIQUID* 20 MEQ PACKET PO SCH (09:40)
[2018-07-16] MEDS: Aspirin EC TAB* 81 MG TAB.EC PO SCH (09:40)
[2018-07-16] MEDS: Insulin GLARGINE(*) 1 UNITS UNIT SUBCUT SCH ×2 (09:41→21:04)
[2018-07-16] MEDS: Tamsulosin CAP* 0.4 MG PO SCH (09:41)
[2018-07-16] MEDS: Insulin LISPRO* 1 UNITS UNIT SUBCUT SCH ×4 (09:42→21:04)
[2018-07-16] MEDS ORDERED: Perflutren Lipid Microsphere* 3 ML VIAL ONE (10:39)
[2018-07-16] MEDS: Nystatin TOP POWDER* 15 GM BTL TOPICAL SCH ×3 (11:10→21:05)
--- NOTE | 2018-07-16 14:48 | ECHO ---
Patient: NATHANIEL GOLDSTEIN JR [facility] Rec#: [id number] : 1955 Date: 07/16/2018 Age: 62y Height: 173 cm / 68.1 in Weight: 172 kg / 379.1 lbs Sex: M BSA: 2.69 Room#: 422 Admit Date#: 07/14/2018 Type: Inpatient Referring: RICH JACQUES Reading: Lanre Delgado DO Police Booking Officer: Shannan Grace RDCS CC: Farheen Almonte MD Transthoracic Echocardiogram Indication: Congestive heart failure BP: 120/81 HR: 96 Rhythm: NSR with PACs Findings History: LINDA, smoker, MO, DM. This study was performed with patient sitting upright in a recliner due to respiratory distress. Technical Comments: The study is technically difficult. The study is technically limited due to patient body habitus. The study was technically limited due to the patient's inability to lay in the left lateral decubitus position. Left Ventricle: The left ventricular chamber size is normal. Mild to moderate concentric left ventricular hypertrophy is observed. Global left ventricular wall motion and contractility are within normal limits. Left ventricular systolic function is at the lower limits of normal. The estimated ejection fraction is 50-55%. Abnormal left ventricular diastolic function is observed. Left Atrium: The left atrium is moderately dilated. Right Ventricle: The right ventricle is mildly dilated. The right ventricular global systolic function is moderately reduced. Right Atrium: The right atrium is moderately dilated. Aortic Valve: The aortic valve is trileaflet. The aortic valve leaflets are mildly thickened. There is a trace of aortic regurgitation. There is no evidence of aortic stenosis. Mitral Valve: The mitral valve leaflets are mildly thickened. There is trace to mild mitral regurgitation. There is no evidence of mitral stenosis. Tricuspid Valve: The tricuspid valve leaflets are normal. There is trace tricuspid regurgitation. Unable to estimate the right ventricular systolic pressure. There is no tricuspid stenosis. Pulmonic Valve: The pulmonic valve structure is not well visualized. There is a trace pulmonic regurgitation. There is no pulmonic stenosis. Pericardium: There is no significant pericardial effusion. A pericardial fat pad is visualized. Aorta: There is mild dilatation of the ascending aorta. There is no dilatation of the aortic arch. The aortic root is normal in size. Pulmonary Artery: The main pulmonary artery is not well visualized. Venous: The inferior vena cava is dilated. There is a greater than 50% respiratory change in the inferior vena cava dimension. Contrast: Definity was used to optimize study. 4 mL of diluted Definity were utilized. Intravenous contrast was used to enhance endocardial border definition. Conclusions The left ventricular chamber size is normal. Mild to moderate concentric left ventricular hypertrophy is observed. Global left ventricular wall motion and contractility are within normal limits. Left ventricular systolic function is at the lower limits of normal. The estimated ejection fraction is 50-55%. The left atrium is moderately dilated. The right ventricle is mildly dilated. The right ventricular global systolic function is moderately reduced. Unable to estimate the right ventricular systolic pressure. No significant valvular abnormalities noted The study is technically difficult. Definity was used to optimize study. Compared to prior study from 08/2011, the use of definity makes this study diagnostic Measurements Name Value Normal Range RVIDd (AP) 2D 4.1 cm (0.9 - 2.6) RVDdMajor (2D) 5.6 cm (2.2 - 4.4) RAd ISD 4CH 6.1 cm (3.4 - 4.9) RA (A4C)W 5.2 cm (2.9 - 4.6) IVSd (2D) 1.3 cm (0.6 - 1) LVPWd (2D) 1.2 cm (0.6 - 1) LVIDd (2D) 3.8 cm (3.6 - 5.4) LVIDs (2D) 2.8 cm - LV FS (2D) 26 % (25 - 45) Aortic Annulus 2 cm (1.4 - 2.6) Ao root diameter (2D) 3.3 cm (2.1 - 3.5) Ascending Ao 3.5 cm (2.1 - 3.4) Aortic arch 2.6 cm (1.8 - 3.4) LA dimension (AP) 2D 4.5 cm (2.3 - 3.8) LAd ISD 4CH 6.2 cm (2.9 - 5.3) LA ISD 4CH W 5.7 cm (2.5 - 4.5) Name Value Normal Range MV E-wave Vmax 0.7 m/sec - MV deceleration time 240 msec - MV A-wave Vmax 0.8 m/sec - MV E:A ratio 0.8 ratio - LV septal e' Vmax 0.06 m/sec - LV lateral e' Vmax 0.06 m/sec - LV E:e' septal ratio 11.7 ratio - LV E:e' lateral ratio 11.7 ratio - Name Value Normal Range AV Vmax 1.5 m/sec - AV VTI 29 cm - AV peak gradient 9 mmHg - AV mean gradient 5 mmHg - LVOT Vmax 0.9 m/sec - LVOT VTI 16 cm - LVOT peak gradient 4 mmHg - LVOT mean gradient 2 mmHg - DENI Vmax 0.9 m/sec - Name Value Normal Range IVC diameter 3.3 cm - Name Value Normal Range PV Vmax 1.1 m/sec - PV peak gradient 4 mmHg -
[2018-07-16] MEDS: Enoxaparin(*) 40 MG/0.4 ML SYR SUBCUT SCH (16:04)
--- NOTE | 2018-07-16 16:04 | PN ---
Subjective Date of Service: 07/16/18 Interval History: Mr. Jean is feeling better today. He offers no complaints. Denies SOB or CP. He is eating lunch on my exam. Denies N/V. Not particularly conversational or willing to offer information. No concerns from nursing. Family History: Unchanged from Admission Social History: Unchanged from Admission Past Medical History: Unchanged from Admission Objective Active Medications: Albuterol/Ipratropium (Duoneb (Albuterol 2.5 Mg/Ipratropium 0.5 Mg)) 1 neb INH Q2H PRN SOB/WHEEZING Albuterol/Ipratropium (Duoneb (Albuterol 2.5 Mg/Ipratropium 0.5 Mg)) 1 neb INH [id number] AWAKE [facility] Amlodipine Besylate (Norvasc Tab*) 5 mg PO DAILY [facility] Aspirin (Aspirin Ec Tab*) 81 mg PO DAILY [facility] Atorvastatin Calcium (Lipitor*) 80 mg PO DAILY [facility] Dextrose (D50w Syringe 50 Ml*) 12.5 gm IV PUSH .FOR FS < 60 - SS PRN FS < 60 Enoxaparin Sodium (Lovenox(*)) 40 mg SUBCUT Q24H [facility] Guaifenesin (Robitussin*) 5 ml PO Q6H PRN COUGH Lactated Ringer's (Lactated Ringers 1000 Ml Bag*) 1,000 mls @ 100 mls/hr IV PER RATE [facility] Insulin Glargine (Lantus(*)) 15 units SUBCUT BID [facility] Insulin Human Lispro (Humalog*) 0 units SUBCUT ACHS [facility]; Protocol Latanoprost (Xalatan 0.005%*) 1 drop BOTH EYES QPM [facility] Nystatin (Nystatin Top Powder*) 1 applic TOPICAL TID [facility] Oseltamivir Phosphate (Tamiflu Cap*) 75 mg PO BID [facility] Potassium Chloride (Klor-Con Liquid*) 40 meq PO DAILY [facility] Prochlorperazine Edisylate (Compazine Inj*) 5 mg IV Q6H PRN NAUSEA/VOMITING Tamsulosin HCl (Flomax Cap*) 0.4 mg PO DAILY [facility] Vital Signs - 8 hr 07/16/18 07/16/18 07/16/18 08:00 11:27 12:09 Temperature 98.0 F Pulse Rate 79 80 Respiratory 18 18 18 Rate Blood Pressure 136/44 (mmHg) O2 Sat by Pulse 96 94 Oximetry Oxygen Devices in Use Now: Nasal Cannula - 4L Appearance: Middle-aged obese male sitting in chair in NAD Eyes: No Scleral Icterus Ears/Nose/Mouth/Throat: Mucous Membranes Moist Neck: NL Appearance and Movements; NL JVP, Trachea Midline Respiratory: Symmetrical Chest Expansion and Respiratory Effort, - - Scattered rhonchi throughout Cardiovascular: NL Sounds; No Murmurs; No JVD, RRR Abdominal: NL Sounds; No Tenderness; No Distention Neurological: Alert and Oriented x 3 Lines/Tubes/Other Access: Clean, Dry and Intact Peripheral IV Nutrition: Taking PO's Result Diagrams: 07/15/18 04:03 07/16/18 05:42 Assess/Plan/Problems-Billing Assessment: Mr. Jean is a 62 yo M with PMH of DM2, HTN, HLD, LINDA, and morbid obesity; who presented to the ED with SOB and was found to be in acute respiratory failure requiring BiPAP and admission to the ICU, now on the medical floor. - Patient Problems (1) Acute respiratory failure with hypoxemia Code(s): J96.01 - ACUTE RESPIRATORY FAILURE WITH HYPOXIA Comment: - Presenting with SOB x3 weeks - BiPAP initiated in the ED; now down to 4L NC - Titrate oxygen to maintain sat >90% - Continue prednisone, nebs (2) COPD exacerbation Code(s): J44.1 - CHRONIC OBSTRUCTIVE PULMONARY DISEASE W (ACUTE) EXACERBATION Comment: - No formal diagnosis of COPD, but significant smoking history - Would benefit from formal diagosis with PFTs as an outpatient - Plan as above (3) Influenza A Code(s): J10.1 - FLU DUE TO OTH IDENT INFLUENZA VIRUS W OTH RESP MANIFEST Comment: - Droplet precautions - Continue Tamiflu (4) Rhabdomyolysis Code(s): M62.82 - RHABDOMYOLYSIS Comment: - Secondary to immobility - No evidence of HERBERT - CK is resolving; will continue to trend (5) Transaminitis Code(s): R74.0 - NONSPEC ELEV OF LEVELS OF TRANSAMNS & LACTIC ACID DEHYDRGNSE Comment: - Elevated on admission - Hepatitis panel negative - Unclear etiology; differentials include rhabdomyolysis, fatty liver (6) Diabetes mellitus Code(s): E11.9 - TYPE 2 DIABETES MELLITUS WITHOUT COMPLICATIONS Comment: - Very poor glucose control - A1c 11.5% - Continue Lispro SS; resume glyburide; increase Lantus (7) Hypertension Code(s): I10 - ESSENTIAL (PRIMARY) HYPERTENSION Comment: - Slightly hypertensive, SBP 130-150s - Continue amlodipine; resume HCTZ (8) Hyperlipidemia Code(s): E78.5 - HYPERLIPIDEMIA, UNSPECIFIED Comment: - Continue atorvastatin (9) BPH (benign prostatic hyperplasia) Code(s): N40.0 - BENIGN PROSTATIC HYPERPLASIA WITHOUT LOWER URINRY TRACT SYMP Comment: - Continue tamsulosin (10) DVT prophylaxis Comment: - Lovenox (11) Full code status Code(s): Z78.9 - OTHER SPECIFIED HEALTH STATUS Comment: Status and Disposition: Inpatient. Anticipate d/c home vs [facility] when medically stable. Social work involved d/t poor living conditions. Attending: Figueroa Cole
[2018-07-16] MEDS ORDERED: Potassium Chlor TAB* 10 MEQ TAB.ER PO ONE (16:05)
[2018-07-16] MEDS: Latanoprost 0.005%* 2.5 ml BTL BOTH EYES SCH (16:05)
[2018-07-16] MEDS ORDERED: ALPRAZolam TAB* 0.5 MG ONE (23:33)
[2018-07-16] MEDS: ALPRAZolam TAB* 0.5 MG PO PRN (23:36)
[2018-07-17] MEDS: Albuterol/Ipratropium NEB.SOL* Albuterol 2.5 MG/Ipratropium 0.5 MG 3 ML INH SCH ×4 (00:47→19:22)
[2018-07-17] MEDS: guaiFENesin LIQ* 100 MG/5 ML UDC PO PRN ×2 (04:05→21:51)
[2018-07-17 07:35] LABS: Albumin 3.3 g/dL (3.2-5.2); BUN/Creatinine Ratio 23.6 (8-20); Calcium 8.9 mg/dL (8.6-10.3); EGFR African American 104.5 (>60); EGFR Non-African American 86.3 (>60); Globulin 3.3 g/dL (2-4); Potassium 3.4 mmol/L (3.5-5.0); Total Bilirubin 0.7 mg/dL (0.2-1.0); Total Protein 6.6 g/dL (6.4-8.9)
[2018-07-17] MEDS: Lactated Ringers 1000 ML Bag* 1,000 ML IV SCH (08:00)
[2018-07-17] MEDS ORDERED: Acetaminophen TAB* 325 MG PO PRN (08:26)
[2018-07-17] MEDS ORDERED: Ibuprofen TAB* 600 MG PO PRN (08:28)
[2018-07-17] MEDS: Insulin LISPRO* 1 UNITS UNIT SUBCUT SCH ×4 (09:23→21:59)
[2018-07-17] MEDS: Insulin GLARGINE(*) 1 UNITS UNIT SUBCUT SCH ×2 (09:25→21:51)
[2018-07-17] MEDS: glyBURIDE TAB* 5 MG PO SCH (09:26)
[2018-07-17] MEDS: Potassium Chloride LIQUID* 20 MEQ PACKET PO SCH (09:26)
[2018-07-17] MEDS: amLODIPine TAB* 5 MG PO SCH (09:27)
[2018-07-17] MEDS: Atorvastatin* 80 MG TAB PO SCH (09:27)
[2018-07-17] MEDS: predniSONE TAB* 10 MG PO SCH (09:27)
[2018-07-17] MEDS: Tamsulosin CAP* 0.4 MG PO SCH (09:27)
[2018-07-17] MEDS: Oseltamivir CAP* 75 MG CAP PO SCH ×2 (09:27→21:51)
[2018-07-17] MEDS: Aspirin EC TAB* 81 MG TAB.EC PO SCH (09:27)
[2018-07-17] MEDS: Hydrochlorothiazide TAB* 25 MG PO SCH (09:27)
[2018-07-17] MEDS: Nystatin TOP POWDER* 15 GM BTL TOPICAL SCH ×3 (09:28→22:55)
[2018-07-17] MEDS: ALPRAZolam TAB* 0.5 MG PO PRN (12:36)
[2018-07-17] MEDS ORDERED: Potassium Chlor TAB* 20 MEQ TAB.ER PO ONE (14:33)
[2018-07-17] MEDS ORDERED: Furosemide IV* 10 MG/ML VIAL (40 MG) IV ONE (14:40)
[2018-07-17] MEDS: Latanoprost 0.005%* 2.5 ml BTL BOTH EYES SCH (17:33)
[2018-07-17] MEDS: Enoxaparin(*) 40 MG/0.4 ML SYR SUBCUT SCH (17:33)
--- NOTE | 2018-07-17 18:01 | PN ---
Subjective Date of Service: 07/17/18 Interval History: Mr. Jean is feeling fine today. He is not particularly interested in conversing with me and will only give 1-2 word answers to questions. He denies pain. No CP, SOB, N/V. Has been up in his room with assistance. Nursing expressing some concern about anxiety. He then had some drowsiness after receiving benzos. Family History: Unchanged from Admission Social History: Unchanged from Admission Past Medical History: Unchanged from Admission Objective Active Medications: Acetaminophen (Tylenol Tab*) 650 mg PO Q4H PRN FEVER/PAIN Albuterol/Ipratropium (Duoneb (Albuterol 2.5 Mg/Ipratropium 0.5 Mg)) 1 neb INH Q2H PRN SOB/WHEEZING Albuterol/Ipratropium (Duoneb (Albuterol 2.5 Mg/Ipratropium 0.5 Mg)) 1 neb INH [id number] AWAKE [facility] Alprazolam (Xanax Tab*) 0.5 mg PO BID PRN ANXIETY/INSOMNIA Amlodipine Besylate (Norvasc Tab*) 5 mg PO DAILY [facility] Aspirin (Aspirin Ec Tab*) 81 mg PO DAILY [facility] Atorvastatin Calcium (Lipitor*) 80 mg PO DAILY [facility] Dextrose (D50w Syringe 50 Ml*) 12.5 gm IV PUSH .FOR FS < 60 - SS PRN FS < 60 Enoxaparin Sodium (Lovenox(*)) 40 mg SUBCUT Q24H [facility] Glyburide (Diabeta Tab*) 5 mg PO DAILY [facility] Guaifenesin (Robitussin*) 5 ml PO Q6H PRN COUGH Hydrochlorothiazide (Hydrodiuril Tab*) 25 mg PO DAILY [facility] Ibuprofen (Motrin Tab*) 600 mg PO Q8H PRN PAIN Insulin Glargine (Lantus(*)) 20 units SUBCUT BID [facility] Insulin Human Lispro (Humalog*) 0 units SUBCUT ACHS [facility]; Protocol Latanoprost (Xalatan 0.005%*) 1 drop BOTH EYES QPM [facility] Nystatin (Nystatin Top Powder*) 1 applic TOPICAL TID [facility] Oseltamivir Phosphate (Tamiflu Cap*) 75 mg PO BID [facility] Potassium Chloride (Klor-Con Liquid*) 40 meq PO DAILY [facility] Prednisone (Deltasone Tab*) 30 mg PO DAILY [facility] Prochlorperazine Edisylate (Compazine Inj*) 5 mg IV Q6H PRN NAUSEA/VOMITING Tamsulosin HCl (Flomax Cap*) 0.4 mg PO DAILY [facility] Vital Signs - 8 hr 07/17/18 07/17/18 07/17/18 11:00 12:36 12:48 Temperature 97.6 F 98.5 F Pulse Rate 97 105 Respiratory 22 18 26 Rate Blood Pressure 140/88 143/73 (mmHg) O2 Sat by Pulse 96 94 Oximetry 07/17/18 07/17/18 07/17/18 13:25 15:06 15:57 Temperature 97.7 F Pulse Rate 92 78 Respiratory 20 20 22 Rate Blood Pressure 129/108 (mmHg) O2 Sat by Pulse 94 Oximetry Oxygen Devices in Use Now: Nasal Cannula - 4L Appearance: Middle-aged obese male sitting in chair in NAD Eyes: No Scleral Icterus Ears/Nose/Mouth/Throat: Mucous Membranes Moist Neck: NL Appearance and Movements; NL JVP, Trachea Midline Respiratory: Symmetrical Chest Expansion and Respiratory Effort, - - Scattered rhonchi throughout Cardiovascular: NL Sounds; No Murmurs; No JVD, RRR Abdominal: NL Sounds; No Tenderness; No Distention Extremities: No Edema Neurological: Alert and Oriented x 3, - - Drowsy, but arouses to voice Lines/Tubes/Other Access: Clean, Dry and Intact Peripheral IV Nutrition: Taking PO's Result Diagrams: 07/15/18 04:03 07/17/18 06:48 Assess/Plan/Problems-Billing Assessment: Mr. Jean is a 62 yo M with PMH of DM2, HTN, HLD, LINDA, and morbid obesity; who presented to the ED with SOB and was found to be in acute respiratory failure requiring BiPAP and admission to the ICU, now on the medical floor. - Patient Problems (1) Acute respiratory failure with hypoxemia Code(s): J96.01 - ACUTE RESPIRATORY FAILURE WITH HYPOXIA Comment: - Presenting with SOB x3 weeks - BiPAP initiated in the ED; now down to 4L NC - Titrate oxygen to maintain sat >90% - Continue prednisone, nebs (2) COPD exacerbation Code(s): J44.1 - CHRONIC OBSTRUCTIVE PULMONARY DISEASE W (ACUTE) EXACERBATION Comment: - No formal diagnosis of COPD, but significant smoking history - Would benefit from formal diagosis with PFTs as an outpatient - Plan as above (3) Influenza A Code(s): J10.1 - FLU DUE TO OTH IDENT INFLUENZA VIRUS W OTH RESP MANIFEST Comment: - Droplet precautions - Continue Tamiflu (4) Rhabdomyolysis Code(s): M62.82 - RHABDOMYOLYSIS Comment: - Secondary to sedentary lifestyle - No evidence of HERBERT - CK is resolving; will continue to trend (5) Transaminitis Code(s): R74.0 - NONSPEC ELEV OF LEVELS OF TRANSAMNS & LACTIC ACID DEHYDRGNSE Comment: - Elevated on admission, but resolving - Hepatitis panel negative - Unclear etiology; differentials include rhabdomyolysis, fatty liver (6) Diabetes mellitus Code(s): E11.9 - TYPE 2 DIABETES MELLITUS WITHOUT COMPLICATIONS Comment: - Very poor glucose control - A1c 11.5% - Continue Lispro SS, glyburide; increase Lantus (7) Hypertension Code(s): I10 - ESSENTIAL (PRIMARY) HYPERTENSION Comment: - Normotensive, SBP 120-140s - Continue amlodipine, HCTZ (8) Hyperlipidemia Code(s): E78.5 - HYPERLIPIDEMIA, UNSPECIFIED Comment: - Continue atorvastatin (9) BPH (benign prostatic hyperplasia) Code(s): N40.0 - BENIGN PROSTATIC HYPERPLASIA WITHOUT LOWER URINRY TRACT SYMP Comment: - Continue tamsulosin (10) DVT prophylaxis Comment: - Lovenox (11) Full code status Code(s): Z78.9 - OTHER SPECIFIED HEALTH STATUS Comment: Status and Disposition: Inpatient. Anticipate d/c home vs [facility] when medically stable. Social work involved d/t poor living conditions. Attending: Figueroa Cole
[2018-07-18] MEDS: Albuterol/Ipratropium NEB.SOL* Albuterol 2.5 MG/Ipratropium 0.5 MG 3 ML INH SCH ×2 (02:51→08:08)
[2018-07-18 07:54] LABS: BUN/Creatinine Ratio 24.7 (8-20); Calcium 9.4 mg/dL (8.6-10.3); EGFR African American 123.5 (>60); Potassium 3.3 mmol/L (3.5-5.0)
[2018-07-18] MEDS: Potassium Chloride LIQUID* 20 MEQ PACKET PO SCH (08:11)
[2018-07-18] MEDS: Insulin LISPRO* 1 UNITS UNIT SUBCUT SCH ×4 (08:11→21:06)
[2018-07-18] MEDS: Insulin GLARGINE(*) 1 UNITS UNIT SUBCUT SCH ×2 (08:11→21:09)
[2018-07-18] MEDS: guaiFENesin LIQ* 100 MG/5 ML UDC PO PRN ×2 (08:11→21:04)
[2018-07-18] MEDS: glyBURIDE TAB* 5 MG PO SCH (08:12)
[2018-07-18] MEDS: Aspirin EC TAB* 81 MG TAB.EC PO SCH (08:12)
[2018-07-18] MEDS: Atorvastatin* 80 MG TAB PO SCH (08:12)
[2018-07-18] MEDS: Nystatin TOP POWDER* 15 GM BTL TOPICAL SCH ×3 (08:12→21:10)
[2018-07-18] MEDS: Tamsulosin CAP* 0.4 MG PO SCH (08:12)
[2018-07-18] MEDS: amLODIPine TAB* 5 MG PO SCH (08:12)
[2018-07-18] MEDS: Hydrochlorothiazide TAB* 25 MG PO SCH (08:12)
[2018-07-18] MEDS: predniSONE TAB* 10 MG PO SCH (08:12)
[2018-07-18] MEDS: Oseltamivir CAP* 75 MG CAP PO SCH ×2 (08:13→21:04)
[2018-07-18] MEDS ORDERED: Albuterol/Ipratropium NEB.SOL* Albuterol 2.5 MG/Ipratropium 0.5 MG 3 ML INH PRN (08:17)
[2018-07-18] MEDS: ALPRAZolam TAB* 0.5 MG PO PRN (09:22)
[2018-07-18] MEDS: Potassium Chlor TAB* 20 MEQ TAB.ER PO SCH ×2 (12:35→17:15)
[2018-07-18] MEDS: Enoxaparin(*) 40 MG/0.4 ML SYR SUBCUT SCH (15:51)
--- NOTE | 2018-07-18 16:14 | PN ---
Subjective Date of Service: 07/18/18 Interval History: Resting in chair on assessment. Min engagement in conversation, but answer questions appropriately. Reports he is tired as this is the time he usually naps. Reports sob is mildly improve. Denies cp, palpitations, fever, chills, nausea, vomiting. Discussed patient with DINO Thomason who reports he expressed anxiety this morning and received prn. No other concerns expressed from nursing staff. Family History: Unchanged from Admission Social History: Unchanged from Admission Past Medical History: Unchanged from Admission Objective Active Medications: Acetaminophen (Tylenol Tab*) 650 mg PO Q4H PRN PRN Reason: FEVER/PAIN Albuterol/Ipratropium (Duoneb (Albuterol 2.5 Mg/Ipratropium 0.5 Mg)) 1 neb INH Q2H PRN PRN Reason: SOB/WHEEZING Last Admin: 07/15/18 17:32 Dose: 1 neb Albuterol/Ipratropium (Duoneb (Albuterol 2.5 Mg/Ipratropium 0.5 Mg)) 1 neb INH [id number] AWAKE PRN PRN Reason: SOB/WHEEZING Alprazolam (Xanax Tab*) 0.5 mg PO BID PRN PRN Reason: ANXIETY/INSOMNIA Last Admin: 07/18/18 09:22 Dose: 0.5 mg Amlodipine Besylate (Norvasc Tab*) 5 mg PO DAILY [facility] Last Admin: 07/18/18 08:12 Dose: 5 mg Aspirin (Aspirin Ec Tab*) 81 mg PO DAILY [facility] Last Admin: 07/18/18 08:12 Dose: 81 mg Atorvastatin Calcium (Lipitor*) 80 mg PO DAILY [facility] Last Admin: 07/18/18 08:12 Dose: 80 mg Dextrose (D50w Syringe 50 Ml*) 12.5 gm IV PUSH .FOR FS < 60 - SS PRN PRN Reason: FS < 60 Enoxaparin Sodium (Lovenox(*)) 40 mg SUBCUT Q24H [facility] Last Admin: 07/18/18 15:51 Dose: 40 mg Glyburide (Diabeta Tab*) 5 mg PO DAILY [facility] Last Admin: 07/18/18 08:12 Dose: 5 mg Guaifenesin (Robitussin*) 5 ml PO Q6H PRN PRN Reason: COUGH Last Admin: 07/18/18 08:11 Dose: 5 ml Hydrochlorothiazide (Hydrodiuril Tab*) 25 mg PO DAILY [facility] Last Admin: 07/18/18 08:12 Dose: 25 mg Ibuprofen (Motrin Tab*) 600 mg PO Q8H PRN PRN Reason: PAIN Last Admin: 07/17/18 09:26 Dose: 600 mg Insulin Glargine (Lantus(*)) 25 units SUBCUT BID [facility] Last Admin: 07/18/18 08:11 Dose: 25 units Insulin Human Lispro (Humalog*) 0 units SUBCUT ACHS [facility]; Protocol Last Admin: 07/18/18 12:35 Dose: 9 unit Latanoprost (Xalatan 0.005%*) 1 drop BOTH EYES QPM [facility] Last Admin: 07/17/18 17:33 Dose: 1 drop Nystatin (Nystatin Top Powder*) 1 applic TOPICAL TID [facility] Last Admin: 07/18/18 12:35 Dose: Not Given Oseltamivir Phosphate (Tamiflu Cap*) 75 mg PO BID [facility] Stop: 07/18/18 21:01 Last Admin: 07/18/18 08:13 Dose: 75 mg Potassium Chloride (Klor-Con Liquid*) 40 meq PO DAILY [facility] Last Admin: 07/18/18 08:11 Dose: 40 meq Potassium Chloride (Klor Con Er Tab*) 20 meq PO Q4HR [facility] Stop: 07/18/18 18:01 Last Admin: 07/18/18 12:35 Dose: 20 meq Prednisone (Deltasone Tab*) 30 mg PO DAILY [facility] Last Admin: 07/18/18 08:12 Dose: 30 mg Prochlorperazine Edisylate (Compazine Inj*) 5 mg IV Q6H PRN PRN Reason: NAUSEA/VOMITING Tamsulosin HCl (Flomax Cap*) 0.4 mg PO DAILY [facility] Last Admin: 07/18/18 08:12 Dose: 0.4 mg Vital Signs - 8 hr 07/18/18 07/18/18 07/18/18 08:15 09:22 11:22 Temperature 97.8 F Pulse Rate 92 Respiratory 20 22 20 Rate Blood Pressure 145/70 (mmHg) O2 Sat by Pulse 92 Oximetry Oxygen Devices in Use Now: Nasal Cannula Appearance: Comfortable, NAD Eyes: No Scleral Icterus Ears/Nose/Mouth/Throat: Clear Oropharnyx, Mucous Membranes Moist Neck: NL Appearance and Movements; NL JVP Respiratory: Symmetrical Chest Expansion and Respiratory Effort, - - Sporadic rhonchi and wheeze. Only min decreased aeration. Cardiovascular: NL Sounds; No Murmurs; No JVD, RRR, No Edema Abdominal: NL Sounds; No Tenderness; No Distention Lymphatic: No Cervical Adenopathy Extremities: No Clubbing, Cyanosis Skin: No Rash or Ulcers Neurological: Alert and Oriented x 3 Nutrition: Taking PO's Result Diagrams: 07/15/18 04:03 07/18/18 06:57 Additional Lab and Data: Laboratory Results - last 24 hr 07/17/18 07/17/18 07/18/18 17:03 21:19 06:57 Sodium 139 Potassium 3.3 L Chloride 97 L Carbon Dioxide 31 Anion Gap 11 BUN 19 Creatinine 0.77 Est GFR ( Amer) 123.5 Est GFR (Non-Af Amer) 102.0 BUN/Creatinine Ratio 24.7 H Glucose 190 H POC Glucose (mg/dL) 335 H 371 H Calcium 9.4 Total Creatine Kinase 1100 H 07/18/18 07/18/18 07:43 12:07 Sodium Potassium Chloride Carbon Dioxide Anion Gap BUN Creatinine Est GFR ( Amer) Est GFR (Non-Af Amer) BUN/Creatinine Ratio Glucose POC Glucose (mg/dL) 198 H 251 H Calcium Total Creatine Kinase Microbiology and Other Data: Microbiology 07/14/18 12:41 Blood Venous Aerobic Blood Culture - Preliminary No Growth Day 4 07/14/18 12:41 Blood Venous Anaerobic Blood Culture - Preliminary No Growth Day 4 07/14/18 12:41 Blood Venous Aerobic Blood Culture - Preliminary No Growth Day 4 07/14/18 12:41 Blood Venous Anaerobic Blood Culture - Preliminary No Growth Day 4 07/14/18 19:17 Nasal Nasal Screen MRSA (PCR) - Final Mrsa Not Detected Assess/Plan/Problems-Billing Assessment: Mr. Jean is a 62 yo M with PMH of DM2, HTN, HLD, LINDA, and morbid obesity; who presented to the ED with SOB and was found to be in acute respiratory failure requiring BiPAP and admission to the ICU, now on the medical floor. - Patient Problems (1) Acute respiratory failure with hypoxemia Comment: - Presenting with SOB x3 weeks - BiPAP initiated in the ED; now down to 2L NC - Titrated oxygen to maintain sat >90% - Continue prednisone. Changed from IV to PO 07/16. Consider titrating soon? - Cont nebs (2) COPD exacerbation Comment: - No formal diagnosis of COPD, but significant smoking history - Would benefit from formal diagosis with PFTs as an outpatient - Plan as above (3) BPH (benign prostatic hyperplasia) Comment: - Continue tamsulosin (4) Diabetes mellitus Comment: - Very poor glucose control - A1c 11.5% - Continue Lispro SS, glyburide - Lantus was increased from home dose of 15 units BID to 25 units BID. - It should be noted that patient is on Detemir at home which has different peak (5) Hyperlipidemia Comment: - Continue atorvastatin (6) Hypertension Comment: - Normotensive, SBP 120-140s - Continue amlodipine, HCTZ (7) Influenza A Comment: - Droplet precautions - Continue Tamiflu (8) Rhabdomyolysis Comment: - Secondary to sedentary lifestyle - No evidence of HERBERT - CK is resolving; will continue to trend (9) Transaminitis Comment: - Elevated on admission, but resolving - Hepatitis panel negative - Unclear etiology; differentials include rhabdomyolysis, fatty liver - Will recheck tomorrow (10) DVT prophylaxis Comment: - Lovenox (11) Full code status Comment: Status and Disposition: Inpatient. Anticipate d/c home vs [facility] when medically stable. Social work involved d/t poor living conditions.
[2018-07-18] MEDS: Latanoprost 0.005%* 2.5 ml BTL BOTH EYES SCH (17:15)
[2018-07-19] MEDS: ALPRAZolam TAB* 0.5 MG PO PRN (03:14)
[2018-07-19 08:12] LABS: Albumin 3.1 g/dL (3.2-5.2); BUN/Creatinine Ratio 23.5 (8-20); Calcium 9.2 mg/dL (8.6-10.3); EGFR African American 116.5 (>60); EGFR Non-African American 96.2 (>60); Globulin 3.1 g/dL (2-4); Potassium 3.3 mmol/L (3.5-5.0); Total Bilirubin 0.6 mg/dL (0.2-1.0); Total Protein 6.2 g/dL (6.4-8.9)
[2018-07-19] MEDS: Insulin LISPRO* 1 UNITS UNIT SUBCUT SCH ×2 (09:01→12:44)
[2018-07-19] MEDS: Insulin GLARGINE(*) 1 UNITS UNIT SUBCUT SCH (09:02)
[2018-07-19] MEDS: predniSONE TAB* 10 MG PO SCH (09:03)
[2018-07-19] MEDS: amLODIPine TAB* 5 MG PO SCH (09:04)
[2018-07-19] MEDS: Aspirin EC TAB* 81 MG TAB.EC PO SCH (09:04)
[2018-07-19] MEDS: Tamsulosin CAP* 0.4 MG PO SCH (09:05)
[2018-07-19] MEDS: Hydrochlorothiazide TAB* 25 MG PO SCH (09:05)
[2018-07-19] MEDS: Potassium Chloride LIQUID* 20 MEQ PACKET PO SCH (09:05)
[2018-07-19] MEDS: Atorvastatin* 80 MG TAB PO SCH (09:05)
[2018-07-19] MEDS: glyBURIDE TAB* 5 MG PO SCH (09:08)
[2018-07-19] MEDS: Albuterol/Ipratropium NEB.SOL* Albuterol 2.5 MG/Ipratropium 0.5 MG 3 ML INH PRN (10:40)
[2018-07-19] MEDS ORDERED: Potassium Chlor TAB* 20 MEQ TAB.ER PO ONE (10:41)
[2018-07-19] MEDS: Nystatin TOP POWDER* 15 GM BTL TOPICAL SCH (11:21)
[2018-07-19 11:38] VITALS: BP 144/66
--- NOTE | 2018-07-19 12:43 | DS ---
CC: Dr. Almonte; [facility]* DATE OF ADMISSION: 07/14/2018. DATE OF DISCHARGE: 07/19/2018. ATTENDING PHYSICIAN: Dr. Diego Vaca* (dictated by Elana Chairez NP). PRIMARY CARE PHYSICIAN: Dr. Almonte. Also, primary care provider will be the healthcare providers at [facility]. PRINCIPAL DIAGNOSES: 1. Acute respiratory failure with hypoxemia. 2. COPD exacerbation. 3. Influenza A. 4. Rhabdomyolysis. 5. Transaminitis. SECONDARY DIAGNOSES: 1. Diabetes. 2. Hypertension. 3. Hyperlipidemia. 4. BPH. CONSULTATIONS WHILE IN THE HOSPITAL: No consultations. PROCEDURES WHILE IN THE HOSPITAL: No procedures. STUDIES WHILE IN THE HOSPITAL: 1. EKG: Impression: Sinus rhythm. 2. Chest x-ray: Impression: Pulmonary vascular congestion. 3. Transthoracic echocardiogram: Impression: The left ventricular chamber size is normal. Mild to moderate concentric left ventricular hypertrophy is observed. Global left ventricular wall motion and contractility are within normal limits. Left ventricular systolic function is at the lower limits of normal. The estimated ejection fraction is 50 to 55 percent. The left atrium is moderately dilated. The right ventricle is mildly dilated. The right ventricular global systolic function is moderately reduced. Unable to estimate the right ventricular systolic pressure. No significant valvular abnormalities. The study is technically difficult. [employer] was used to optimize study. Compared to prior study from August 2011, the use of [employer] makes this study diagnostic. DISCHARGE HOME MEDICATIONS: New home medications: 1. DuoNeb 1 neb inhalation q.4 hours prn while awake. 2. Robitussin 5 ml p.o. q.6 hours prn cough. 3. Potassium Chloride 40 mEq p.o. daily. 4. Nystatin one application topical t.i.d. 5. Prednisone 30 mg p.o. daily times 2 more days. 6. Albuteral 2 puffs q 4 to 6 hrs prn Continued home medications: 1. Flomax 0.4 mg p.o. daily. 2. Lipitor 80 mg p.o. daily. 3. Amlodipine 5 mg p.o. daily. 4. Insulin Detemir 15 units subcu b.i.d. 5. Hydrochlorothiazide 25 mg p.o. daily. 6. Victoza 0.6 mg subcu daily. 7. Latanoprost 0.005% one drop both eyes q.p.m. 8. Glyburide 5 mg p.o. daily. HISTORY OF PRESENT ILLNESS/HOSPITAL COURSE: Mr. eJan is a 62-year-old male with a past medical history significant for morbid obesity, type 2 diabetes, hypertension, hyperlipidemia, and LINDA who presented to the emergency room on due to respiratory distress. For complete details of events leading up to this hospitalization, please see history and physical dictated by Dr. Odilia Kellogg. In short, the patient presented to the emergency room reporting that he has been feeling poor for about three weeks. His reports he has been very weak and spent a long time "just sitting in his recliner." He has been unable to clean himself up, progressively short of breath, and a productive cough. While in the emergency room, it was reported that EMS called Adult Protective Services because the house was described as in poor condition with a dangerous hoarding situation. In addition, while in the emergency room, the patient required BiPAP to assist with ventilation. The patient was found to be flu A positive. It was suspected his acute hypoxic respiratory failure was secondary to the flu, obesity hypoventilation syndrome, LINDA, and suspected chronic obstructive pulmonary disease given his significant smoking history, but no formal diagnosis. In addition, while in the emergency room, the patient was noted to have an elevated troponin and it was suspected that this was secondary to demand ischemia in the setting of respiratory failure. He was also noted to have an increase in CK and transaminitis. It was suspected that the patient's increase in CK, suspecting rhabdomyolysis was secondary to his morbid obesity given he has been confined to a recliner. It was suspected that the patient's transaminitis is secondary to fatty liver given his diabetic and morbid obesity. Given these elevated levels, the patient did have a hep panel which was negative. The patient was also noted to hypokalemic and have an elevated D-dimer. We suspect that D-dimer was secondary to a COPD exacerbation influenza given his D-dimer was only mildly elevated. Finally, there was concern that the patient may have cor pulmonale given his long history of tobacco use, lower extremity edema, and mild LFT elevation. Initially the patient was admitted to the ICU due to needing BiPAP to support ventilation. The patient was successful weaned from BiPAP and onto nasal cannula. The patient is currently on two liters nasal cannula and his oxygen saturation is within normal limits. He has been receiving nebulizers and Prednisone and is recovering well. As mentioned above, the patient was positive for the flu; therefore, he was placed on Tamiflu. He has completed a five day course of Tamiflu. While admitted his labs were also trended and his CK trended down nicely with gentle IV fluid hydration. His transaminitis has also almost normalized as his AST and ALT are 38 and 65 respectively. As for this elevated troponin on admission, this has stayed flat with no significant increase. The patient is recovery well and therefore is stable for discharge to [facility] today. REVIEW OF SYSTEMS: General: No fevers, no anorexia, no weakness. Cardiac: No chest pain, no palpitations, no shortness of breath. Respiratory: Reports mild shortness of breath that has greatly improved since admission. Reports occasional cough. Denies wheezing. GI: No nausea, vomiting, diarrhea. : No dysuria, increasing frequency, hematuria. Musculoskeletal: No arthralgias or myalgias. Skin: No rashes or lesions. Neuro: No dizziness, weakness, visual changes. Psych: No depression or anxiety. PHYSICAL EXAMINATION: General: Mr. eJan is a 62-year-old male who is sitting in a recliner. He appears to be in no acute distress. He appears his stated age. Vital Signs: Temperature 97.8, heart rate 82, respiratory rate 20, O2 saturation 97 percent on two liters, blood pressure 130/72. HEENT: EOM's intact. PERRLA. Oral mucosa is moist without lesions. Posterior pharynx is clear. Neck: Full range of motion. No lymphadenopathy. Respiratory: Symmetrical to expansion. No accessory muscle use. Lungs are clear to auscultation. No rhonchi, wheezes, or rubs. CV: Regular rate and rhythm. S1 , S2 present. No murmurs, rubs or gallops. Extremities: Skin is warm and smooth bilaterally. The patient has 1+ edema to the bilateral lower extremities. No clubbing or cyanosis. Pedal pulse is 2+ bilaterally. Musculoskeletal: No pain or deformities. Abdomen: Soft, nontender to palpation. Bowel sound normoactive. Neuro: Awake, alert and oriented times four. No focal deficits or weakness noted. Skin: Grossly intact without lesions. LABORATORY DATA: WBC 4.5, hemoglobin 13.6, hematocrit 41, platelets 174; sodium 136, potassium 3.3, chloride 97, carbon dioxide 32, BUN 19, creatinine 0.81, glucose 152, total bilirubin 0.60, AST 38, ALT 65, alk phos 67, total protein 6.2, albumin 3.1. DISCHARGE PLAN/FOLLOW-UP: 1. Acute respiratory failure with hypoxia: As mentioned above, the patient initially required BiPAP, but is now successfully oxygenating on two liters of nasal cannula. It is recommended that the patient continue with oxygen supplementation until he can maintain his saturations on room air above 90 percent. The patient has received three days of Prednisone p.o. The patient should continue Prednisone 30 mg p.o. daily for another two days starting tomorrow. The patient has also needed occasional DuoNebs; therefore, I could recommend continuing these DuoNebs q.4 hour prn. 2. COPD exacerbation: As mentioned in the HPI, the patient does not have a formal diagnosis of COPD, but has a significant history of smoking. He would benefit from formal diagnosis with PFT's as an outpatient. 3. Influenza: As mentioned above, the patient completed a course of Tamiflu. I would continue monitoring the patient for new or worsening symptoms. I would encourage p.o. fluid intake. I would encourage rest. 4. Rhabdomyolysis: As mentioned in the HPI, the patient had a significant elevation in his CK on admission. The patient's CK on 07/14/2018 was 7,711. The patient's CK has trended down nicely and is now 722. I would encourage the patient to stay mobile to reduce the risks of another episode of rhabdomyolysis. 5. Transaminitis: As mentioned above, the patient's AST and ALT were elevated on admission. His hepatitis panel was negative. His repeat AST and ALT today is normalizing nicely. I would repeat this in a few weeks. If they continue to be elevated, I would recommend a GI consult and/or an ultrasound of the liver. 6. Diabetes: The patient has very poor glucose control with a hemoglobin A1c of 11.5. The patient can resume his home medications as same. I would recommend that the patient follow-up with his primary care regarding adjustments if needed. I would also recommend encouragement for lifestyle changes. 7. Hypertension: The patient has been normotensive and may resume his Amlodipine and HCTZ. 8. Hyperlipidemia: The patient should continue his Atorvastatin. 9. BPH: The patient should continue his Tamsulosin. 10. LINDA: The patient should continue his CPAP nightly. 11. Cor pulmonale: As mentioned in the HPI, there was suspicion for cor pulmonale. Given the patient's echocardiogram, I would encourage the patient to be referred to a sieve grader tender. I discussed this with the patient and him and his primary care can decide whether this is necessary. 12. Hypokalemia: As mentioned above, the patient is slightly hypokalemic today at 3.3. The patient was initially 2.9 on admission and 40 mg p.o. were initiated. I would continue the 40 mg p.o. and recheck a BMP in one week. As for the patient's 3.3 today, I have ordered an additional 20 mEq. Once again I would recommend a BMP in one week. 13. Education: The patient was educated on new or worsening symptoms and when to return to the nearest emergency department. The patient stated understanding. FOLLOW-UP: As mentioned above, I would encourage the patient to follow-up with his primary care provider in one week for repeat BMP, discussion about diabetes , recheck of blood pressure, recheck of lung assessment. This a summarized report of the complex medical history and hospital stay. For further details, please see the entire medical record. TIME SPENT: Approximately 40 minutes were spent on this discharge, greater than half that time was spent [id number] with the patient discussing discharge plans and instructions. ELANA CHAIREZ NP [id number]/CPS #: [id number] CAROLYN
== END 2018-07-19 13:15 | DRG 189 ==
LOC: ED 12:29 → ICU 15:03 → MED 07-15 11:20
PROVIDERS: ADMIT Internal Medicine; ATTEND Internal Medicine
PROC: 5A09457 Assistance with Respiratory Ventilation, 24-96 Consecutive Hours, Continuous Positive Airway Pressure (ICD-10-PCS; principal; 2018-07-14)
DX: J96.01 Acute respiratory failure with hypoxia (principal); J44.1 Chronic obstructive pulmonary disease with (acute) exacerbation; M62.82 Rhabdomyolysis; E66.2 Morbid (severe) obesity with alveolar hypoventilation; Z68.43 Body mass index [BMI] 50.0-59.9, adult; I24.8 Other forms of acute ischemic heart disease; R65.10 Systemic inflammatory response syndrome (SIRS) of non-infectious origin without acute organ dysfunction; I27.81 Cor pulmonale (chronic); E11.65 Type 2 diabetes mellitus with hyperglycemia; K76.0 Fatty (change of) liver, not elsewhere classified; J10.1 Influenza due to other identified influenza virus with other respiratory manifestations; R74.0 Nonspecific elevation of levels of transaminase and lactic acid dehydrogenase [LDH]; I10 Essential (primary) hypertension; E78.5 Hyperlipidemia, unspecified; N40.0 Benign prostatic hyperplasia without lower urinary tract symptoms; R74.8 Abnormal levels of other serum enzymes; F43.10 Post-traumatic stress disorder, unspecified; E87.6 Hypokalemia; R60.0 Localized edema; F17.210 Nicotine dependence, cigarettes, uncomplicated; Z79.899 Other long term (current) drug therapy; Z88.8 Allergy status to other drugs, medicaments and biological substances; Z83.79 Family history of other diseases of the digestive system; Z79.84 Long term (current) use of oral hypoglycemic drugs; Z79.4 Long term (current) use of insulin
CPT/HCPCS: 36415; 71045; 80048; 80053; 80074; 82550; 82553; 82803; 82947; 83036; 83605; 83735; 83880; 84484; 85025; 85379; 85610; 85730; 86140; 87040; 87641; 93005; 93306; 94640; 94660; 99285; 99406; A9270-GY; C8929; G8987-GO-CL; G8988-GO-CI; J1650; J1940; J2920; J3480; J7512

== ENCOUNTER 2022-05-12 14:39 | Inpatient (IN) ==
[2022-05-12] MEDS ORDERED: cefTRIAXone 2 gm/50 mL D5W 2 GM/50 ML BAG IV ONE (15:35)
[2022-05-12] MEDS ORDERED: Morphine 4 MG/ML VIAL (1 ml) IV ONE (15:57)
[2022-05-12] MEDS ORDERED: Lactated Ringers 1000 ml BAG 1,000 ML IV ONE (16:03)
[2022-05-12 16:23] LABS: Venous Bicarbonate HCO3 27.3 mmol/L (24-28)
[2022-05-12 16:24] LABS: ABS Basophils 0.1 10^3/ul (0-0.2); ABS Eosinophils 0.5 10^3/ul (0-0.6); ABS Lymphocytes 1.5 10^3/ul (1.0-4.8); ABS Monocytes 0.5 10^3/ul (0-0.8); ABS Neutrophils 2.9 10^3/ul (1.5-7.7); Eosinophil % 8.9 %; Hematocrit 46 % (42-52); Hemoglobin 15.1 g/dL (14.0-18.0); Lymphocyte % 26.6 %; Mean Corpuscular HGB Conc 33 g/dL (31-36); Mean Corpuscular Hemoglobin 30 pg (27-31); Mean Corpuscular Volume 91 fL (80-94); Platelet Count 247 10^3/uL (150-450); Red Blood Count 5.06 10^6 /uL (4.18-5.48); Red Cell Distribution Width 13 % (10-15); White Blood Count 5.5 10^3/uL (3.5-10.8)
[2022-05-12 16:41] LABS: Albumin 3.7 g/dL (3.2-5.2); Albumin/Globulin Ratio 1.3 (1-3); C Reactive Protein 7.95 mg/L (<8.01); Calcium 9.2 mg/dL (8.6-10.3); Creatinine, Serum 0.78 mg/dL (0.67-1.17); Globulin 2.9 g/dL (2-4); Potassium 4.5 mmol/L (3.5-5.0); Total Bilirubin 0.4 mg/dL (0.2-1.0); Total Protein 6.6 g/dL (6.4-8.9); eGFR CKD-EPI 97.7 (>60)
[2022-05-12] MEDS ORDERED: Iodixanol (CONTRAST) 320 MG/ML 100 ML SDV IV ONE (16:59)
[2022-05-12] MEDS ORDERED: Vancomycin 1,000 MG in NS 0.9% 250 ml 250 ML IVPB ONE (19:12)
[2022-05-12] MEDS ORDERED: Piperacillin/Tazobac ADVAN 3.375 GM in NS 0.9% 100 ml BAG 100 ML IV ONE (19:16)
[2022-05-12] MEDS ORDERED: Albuterol HFA INHALER 8 gm MDI INH PRN (19:16)
[2022-05-12] MEDS ORDERED: Dextrose 50% Syringe 50 ml 25 GM/50 ML SYRINGE IV PUSH PRN (19:17)
[2022-05-12] MEDS ORDERED: Vancomycin per Pharmacy 1 EA NOTE FOLLOW UP SCH (20:00)
[2022-05-12] MEDS ORDERED: Zosyn per Pharmacy NOTE FOLLOW UP SCH (20:00)
[2022-05-12] MEDS: Enoxaparin 40 MG/0.4 ML SYR SUBCUT SCH (20:40)
[2022-05-12] MEDS: Insulin GLARGINE 100 un/ml 10 ml VIAL SUBCUT SCH (20:40)
[2022-05-12] MEDS ORDERED: Vancomycin 2,000 MG in NS 0.9% 500 ml BAG 500 ML IVPB ONE (21:00)
[2022-05-13] MEDS: ZOSYN 3.375 GM Q8H per EXTENDED INFUSION IV SCH ×2 (02:18→10:29)
[2022-05-13 06:00] LABS: ABS Basophils 0.1 10^3/ul (0-0.2); ABS Eosinophils 0.5 10^3/ul (0-0.6); ABS Lymphocytes 1.4 10^3/ul (1.0-4.8); ABS Monocytes 0.6 10^3/ul (0-0.8); ABS Neutrophils 1.8 10^3/ul (1.5-7.7); Eosinophil % 11.2 %; Hematocrit 38 % (42-52); Hemoglobin 12.3 g/dL (14.0-18.0); Lymphocyte % 32.8 %; Mean Corpuscular HGB Conc 33 g/dL (31-36); Mean Corpuscular Hemoglobin 30 pg (27-31); Mean Corpuscular Volume 91 fL (80-94); Mean Platelet Volume 8.3 fL (7.4-10.4); Platelet Count 205 10^3/uL (150-450); Red Blood Count 4.13 10^6 /uL (4.18-5.48); Red Cell Distribution Width 13 % (10-15); White Blood Count 4.4 10^3/uL (3.5-10.8)
[2022-05-13 06:55] LABS: Calcium 8.7 mg/dL (8.6-10.3); Creatinine, Serum 0.97 mg/dL (0.67-1.17); Magnesium 1.8 mg/dL (1.9-2.7); Potassium 4.6 mmol/L (3.5-5.0); eGFR CKD-EPI 85.6 (>60)
[2022-05-13] MEDS ORDERED: Magnesium Sulfate 2 gm BAG 2 GM/50 ML BAG IVPB ONE (07:09)
[2022-05-13] MEDS: Vancomycin 1,750 MG in NS 0.9% 500 ml BAG 500 ML IVPB SCH ×2 (07:17→21:25)
[2022-05-13] MEDS: Latanoprost 0.005% 2.5 ml BTL BOTH EYES SCH (08:38)
[2022-05-13 10:46] LABS: Urine Appearance Clear; Urine Bilirubin Negative (Negative); Urine Blood Negative (Negative); Urine Color Yellow; Urine Glucose 3+(>=500 mg/dL) (Negative); Urine Ketones Trace (Negative); Urine Nitrite Negative (Negative); Urine Protein 1+(30 mg/dL) (Negative); Urine Specific Gravity 1.046 (1.002-1.030); Urine Urobilinogen Negative (Negative)
[2022-05-13 10:50] LABS: Urine Bacteria Absent (Absent); Urine Red Blood Cell Absent (Absent); Urine Squamous Epithelial Cell Present (Absent); Urine White Blood Cell Absent (Absent)
[2022-05-13] MEDS: Fluconazole IV 400 MG 200 ML IVPB SCH ×2 (15:32→17:51)
[2022-05-13] MEDS ORDERED: ZOSYN 3.375 GM Q8H per EXTENDED INFUSION IV SCH (18:00)
[2022-05-13] MEDS: Enoxaparin 40 MG/0.4 ML SYR SUBCUT SCH (20:34)
[2022-05-13] MEDS: Insulin GLARGINE 100 un/ml 10 ml VIAL SUBCUT SCH (20:34)
[2022-05-14] MEDS ORDERED: Vancomycin Trough Check NOTE FOLLOW UP ONE (07:30)
[2022-05-14] MEDS: Latanoprost 0.005% 2.5 ml BTL BOTH EYES SCH (07:46)
[2022-05-14] MEDS: Vancomycin 1,750 MG in NS 0.9% 500 ml BAG 500 ML IVPB SCH ×2 (09:56→20:43)
[2022-05-14] MEDS ORDERED: Influenza vaccine *QUAD* *2022-23* 0.5 ML SYRINGE IM ONE (10:00)
[2022-05-14] MEDS ORDERED: Dextrose 50% Syringe 50 ml 25 GM/50 ML SYRINGE IV PUSH PRN (12:53)
[2022-05-14] MEDS: Fluconazole IV 400 MG 200 ML IVPB SCH ×2 (15:05→17:21)
[2022-05-14] MEDS: Enoxaparin 40 MG/0.4 ML SYR SUBCUT SCH (20:45)
[2022-05-14] MEDS: Insulin GLARGINE 100 un/ml 10 ml VIAL SUBCUT SCH (20:46)
[2022-05-15 07:47] LABS: ABS Basophils 0.1 10^3/ul (0-0.2); ABS Eosinophils 0.5 10^3/ul (0-0.6); ABS Lymphocytes 1.6 10^3/ul (1.0-4.8); ABS Monocytes 0.6 10^3/ul (0-0.8); ABS Neutrophils 2.3 10^3/ul (1.5-7.7); Eosinophil % 9.1 %; Hematocrit 43 % (42-52); Hemoglobin 13.9 g/dL (14.0-18.0); Lymphocyte % 31.7 %; Mean Corpuscular HGB Conc 33 g/dL (31-36); Mean Corpuscular Hemoglobin 30 pg (27-31); Mean Corpuscular Volume 91 fL (80-94); Mean Platelet Volume 8.5 fL (7.4-10.4); Platelet Count 235 10^3/uL (150-450); Red Blood Count 4.68 10^6 /uL (4.18-5.48); Red Cell Distribution Width 14 % (10-15)
[2022-05-15 08:21] LABS: Creatinine, Serum 0.8 mg/dL (0.67-1.17); Magnesium 1.8 mg/dL (1.9-2.7); Potassium 4.3 mmol/L (3.5-5.0)
[2022-05-15] MEDS ORDERED: Magnesium Sulfate 2 gm BAG 2 GM/50 ML BAG IVPB ONE (08:23)
[2022-05-15] MEDS: Vancomycin 1,750 MG in NS 0.9% 500 ml BAG 500 ML IVPB SCH ×2 (08:57→19:29)
[2022-05-15] MEDS: Latanoprost 0.005% 2.5 ml BTL BOTH EYES SCH (09:00)
[2022-05-15] MEDS: Insulin GLARGINE 100 un/ml 10 ml VIAL SUBCUT SCH (19:32)
[2022-05-15] MEDS: Enoxaparin 40 MG/0.4 ML SYR SUBCUT SCH (19:34)
[2022-05-16 07:29] LABS: ABS Basophils 0.1 10^3/ul (0-0.2); ABS Eosinophils 0.4 10^3/ul (0-0.6); ABS Lymphocytes 1.4 10^3/ul (1.0-4.8); ABS Monocytes 0.5 10^3/ul (0-0.8); ABS Neutrophils 2.2 10^3/ul (1.5-7.7); Eosinophil % 7.9 %; Hematocrit 44 % (42-52); Hemoglobin 14.3 g/dL (14.0-18.0); Lymphocyte % 29.9 %; Mean Corpuscular HGB Conc 33 g/dL (31-36); Mean Corpuscular Hemoglobin 30 pg (27-31); Mean Corpuscular Volume 91 fL (80-94); Mean Platelet Volume 8.5 fL (7.4-10.4); Nucleated Red Blood Cells % 0.1; Platelet Count 252 10^3/uL (150-450); Red Blood Count 4.79 10^6 /uL (4.18-5.48); Red Cell Distribution Width 14 % (10-15); White Blood Count 4.6 10^3/uL (3.5-10.8)
[2022-05-16] MEDS ORDERED: Vancomycin Trough Check NOTE FOLLOW UP ONE (07:30)
[2022-05-16 08:03] LABS: Creatinine, Serum 0.81 mg/dL (0.67-1.17); Vancomycin Trough 12.1 mcg/mL; eGFR CKD-EPI 96.6 (>60)
[2022-05-16 08:05] LABS: Creatinine, Serum 0.8 mg/dL (0.67-1.17); Magnesium 1.8 mg/dL (1.9-2.7); Potassium 4.5 mmol/L (3.5-5.0)
[2022-05-16] MEDS ORDERED: Fluconazole 400 MG IVPREMIX 400 MG/200 ML BAG IVPB SCH (08:30)
[2022-05-16] MEDS: Vancomycin 1,750 MG in NS 0.9% 500 ml BAG 500 ML IVPB SCH ×2 (08:36→20:33)
[2022-05-16] MEDS: Latanoprost 0.005% 2.5 ml BTL BOTH EYES SCH (08:37)
[2022-05-16] MEDS: Fluconazole 400 MG IVPREMIX 400 MG/200 ML BAG IVPB SCH (11:54)
[2022-05-16] MEDS: Enoxaparin 40 MG/0.4 ML SYR SUBCUT SCH (20:36)
[2022-05-16] MEDS: Insulin GLARGINE 100 un/ml 10 ml VIAL SUBCUT SCH (20:37)
[2022-05-17 06:46] LABS: Creatinine, Serum 0.82 mg/dL (0.67-1.17); eGFR CKD-EPI 96.3 (>60)
[2022-05-17] MEDS ORDERED: Magnesium Sulfate 2 gm BAG 2 GM/50 ML BAG IVPB ONE (07:05)
[2022-05-17] MEDS: Latanoprost 0.005% 2.5 ml BTL BOTH EYES SCH (08:40)
[2022-05-17] MEDS: Vancomycin 1,750 MG in NS 0.9% 500 ml BAG 500 ML IVPB SCH ×2 (09:21→21:48)
[2022-05-17] MEDS: Fluconazole 400 MG IVPREMIX 400 MG/200 ML BAG IVPB SCH (14:06)
[2022-05-17] MEDS: Insulin GLARGINE 100 un/ml 10 ml VIAL SUBCUT SCH (21:43)
[2022-05-17] MEDS: Enoxaparin 40 MG/0.4 ML SYR SUBCUT SCH (21:44)
[2022-05-17] MEDS: Nystatin TOP POWDER 15 GM BTL TOPICAL SCH (21:55)
[2022-05-18 06:11] LABS: Calcium 9.2 mg/dL (8.6-10.3); Creatinine, Serum 0.74 mg/dL (0.67-1.17); Potassium 4.4 mmol/L (3.5-5.0); eGFR CKD-EPI 99.3 (>60)
[2022-05-18] MEDS: Vancomycin 1,750 MG in NS 0.9% 500 ml BAG 500 ML IVPB SCH (08:11)
[2022-05-18] MEDS: Nystatin TOP POWDER 15 GM BTL TOPICAL SCH ×2 (08:29→20:28)
[2022-05-18] MEDS: Latanoprost 0.005% 2.5 ml BTL BOTH EYES SCH (08:29)
[2022-05-18] MEDS: Fluconazole 400 MG IVPREMIX 400 MG/200 ML BAG IVPB SCH (10:50)
[2022-05-18] MEDS ORDERED: Insulin GLARGINE 100 un/ml 10 ml VIAL SUBCUT SCH (14:00)
[2022-05-18] MEDS ORDERED: [UNRECOGNIZED DRUG - OTHER] IM ONE (14:16)
[2022-05-18] MEDS: Enoxaparin 40 MG/0.4 ML SYR SUBCUT SCH (20:26)
[2022-05-18] MEDS: Senna TAB 8.6 mg TAB PO SCH (20:27)
[2022-05-18] MEDS: Docusate LIQ 100 MG/10 ML UDC PO SCH (20:27)
[2022-05-19] MEDS ORDERED: Vancomycin Trough Check NOTE FOLLOW UP ONE (07:30)
[2022-05-19] MEDS: Latanoprost 0.005% 2.5 ml BTL BOTH EYES SCH (07:55)
[2022-05-19 11:13] LABS: Mean Platelet Volume 8.6 fL (7.4-10.4); Platelet Count 258 10^3/uL (150-450)
[2022-05-19 11:32] LABS: INR 1.05 (0.88-1.18)
[2022-05-19] MEDS: Nystatin TOP POWDER 15 GM BTL TOPICAL SCH ×2 (12:09→21:44)
[2022-05-19] MEDS ORDERED: fentaNYL 100 mcg/2 ml 50 MCG/ML VIAL ONE (13:25)
[2022-05-19] MEDS ORDERED: Insulin GLARGINE 100 un/ml 10 ml VIAL SUBCUT SCH (21:00)
[2022-05-19] MEDS: Enoxaparin 40 MG/0.4 ML SYR SUBCUT SCH ×2 (21:43→21:45)
[2022-05-19] MEDS: Senna TAB 8.6 mg TAB PO SCH (21:44)
[2022-05-19] MEDS: Docusate LIQ 100 MG/10 ML UDC PO SCH (21:44)
[2022-05-20] MEDS: Nystatin TOP POWDER 15 GM BTL TOPICAL SCH (09:50)
[2022-05-20] MEDS: Latanoprost 0.005% 2.5 ml BTL BOTH EYES SCH (09:50)
[2022-05-20 09:56] LABS: ABS Basophils 0.1 10^3/ul (0-0.2); ABS Eosinophils 0.2 10^3/ul (0-0.6); ABS Lymphocytes 1.7 10^3/ul (1.0-4.8); ABS Monocytes 0.6 10^3/ul (0-0.8); ABS Neutrophils 2.7 10^3/ul (1.5-7.7); Eosinophil % 3.5 %; Hematocrit 45 % (42-52); Hemoglobin 14.7 g/dL (14.0-18.0); Lymphocyte % 31.6 %; Mean Corpuscular HGB Conc 33 g/dL (31-36); Mean Corpuscular Hemoglobin 30 pg (27-31); Mean Corpuscular Volume 92 fL (80-94); Mean Platelet Volume 8.7 fL (7.4-10.4); Nucleated Red Blood Cells % 0.1; Platelet Count 255 10^3/uL (150-450); Red Blood Count 4.91 10^6 /uL (4.18-5.48); Red Cell Distribution Width 14 % (10-15); White Blood Count 5.3 10^3/uL (3.5-10.8)
[2022-05-20 10:00] LABS: INR 1.01 (0.88-1.18)
[2022-05-20 10:14] LABS: Calcium 9.5 mg/dL (8.6-10.3); Creatinine, Serum 0.87 mg/dL (0.67-1.17); Potassium 4.6 mmol/L (3.5-5.0); eGFR CKD-EPI 94.6 (>60)
[2022-05-20 14:18] VITALS: BP 144/83
== END 2022-05-20 16:05 | disposition home or self-care (01) | DRG 603 ==
LOC: ED 14:39 → SUATTDRO 18:56 → EDHOLD 18:56 → MED 05-13 16:39
PROVIDERS: ADMIT Hospitalist; ATTEND Internal Medicine

== ENCOUNTER 2022-05-26 20:17 | Observation (INO) ==
[2022-05-26] MEDS ORDERED: NS 0.9% 1000 ml BAG 1,000 ML IV ONE (21:03)
[2022-05-26 21:33] LABS: ABS Basophils 0.1 10^3/ul (0-0.2); ABS Eosinophils 0.3 10^3/ul (0-0.6); ABS Lymphocytes 1.9 10^3/ul (1.0-4.8); ABS Monocytes 0.6 10^3/ul (0-0.8); ABS Neutrophils 3.1 10^3/ul (1.5-7.7); Eosinophil % 4.2 %; Hematocrit 46 % (42-52); Hemoglobin 14.9 g/dL (14.0-18.0); Lymphocyte % 31.2 %; Mean Corpuscular HGB Conc 33 g/dL (31-36); Mean Corpuscular Hemoglobin 30 pg (27-31); Mean Corpuscular Volume 91 fL (80-94); Mean Platelet Volume 9.2 fL (7.4-10.4); Platelet Count 277 10^3/uL (150-450); Red Blood Count 5.01 10^6 /uL (4.18-5.48); Red Cell Distribution Width 14 % (10-15); White Blood Count 5.9 10^3/uL (3.5-10.8)
[2022-05-26 21:58] LABS: Albumin 3.9 g/dL (3.2-5.2); Albumin/Globulin Ratio 1.4 (1-3); C Reactive Protein 5.04 mg/L (<8.01); Calcium 9.4 mg/dL (8.6-10.3); Creatinine, Serum 0.95 mg/dL (0.67-1.17); Globulin 2.8 g/dL (2-4); Magnesium 1.7 mg/dL (1.9-2.7); Phosphorus 3.9 mg/dL (2.5-5.0); Potassium 4.5 mmol/L (3.5-5.0); Total Bilirubin 0.4 mg/dL (0.2-1.0); Total Protein 6.7 g/dL (6.4-8.9); eGFR CKD-EPI 87.7 (>60)
[2022-05-26] MEDS ORDERED: Iodixanol (CONTRAST) 320 MG/ML 100 ML SDV IV ONE (22:10)
[2022-05-27] MEDS ORDERED: Ondansetron 4 mg VIAL 2 MG/ML 2 ml VIAL IV PRN (00:57)
[2022-05-27] MEDS ORDERED: Cefepime 1 GM in Dextrose 1 GM/50 ML BAG IV ONE (00:58)
[2022-05-27] MEDS ORDERED: Vancomycin 2,000 MG in NS 0.9% 500 ml BAG 500 ML IVPB ONE (00:58)
[2022-05-27 01:59] LABS: Urine Appearance Clear; Urine Bilirubin Negative (Negative); Urine Blood Negative (Negative); Urine Color Yellow; Urine Glucose 3+(>=500 mg/dL) (Negative); Urine Ketones Negative (Negative); Urine Nitrite Negative (Negative); Urine Protein Negative (Negative); Urine Specific Gravity 1.027 (1.002-1.030); Urine Urobilinogen Negative (Negative)
[2022-05-27] MEDS: Enoxaparin 40 MG/0.4 ML SYR SUBCUT SCH (06:59)
[2022-05-27] MEDS: Fluconazole 400 MG IVPREMIX 400 MG/200 ML BAG IVPB SCH ×2 (09:50→12:52)
[2022-05-27] MEDS: Nystatin TOP POWDER 15 GM BTL TOPICAL SCH ×3 (10:30→21:07)
[2022-05-27] MEDS ORDERED: Insulin GLARGINE 100 un/ml 10 ml VIAL SUBCUT SCH (21:00)
[2022-05-28] MEDS: Enoxaparin 40 MG/0.4 ML SYR SUBCUT SCH (05:39)
[2022-05-28 07:19] LABS: ABS Basophils 0.1 10^3/ul (0-0.2); ABS Eosinophils 0.3 10^3/ul (0-0.6); ABS Lymphocytes 1.9 10^3/ul (1.0-4.8); ABS Monocytes 0.5 10^3/ul (0-0.8); ABS Neutrophils 2.5 10^3/ul (1.5-7.7); Hematocrit 44 % (42-52); Hemoglobin 14.1 g/dL (14.0-18.0); Lymphocyte % 36.4 %; Mean Corpuscular HGB Conc 32 g/dL (31-36); Mean Corpuscular Hemoglobin 29 pg (27-31); Mean Corpuscular Volume 91 fL (80-94); Mean Platelet Volume 9.4 fL (7.4-10.4); Nucleated Red Blood Cells % 0.1; Platelet Count 255 10^3/uL (150-450); Red Cell Distribution Width 14 % (10-15); White Blood Count 5.3 10^3/uL (3.5-10.8)
[2022-05-28 07:37] LABS: Creatinine, Serum 0.73 mg/dL (0.67-1.17); Magnesium 1.6 mg/dL (1.9-2.7); Potassium 4.3 mmol/L (3.5-5.0); eGFR CKD-EPI 99.7 (>60)
[2022-05-28] MEDS ORDERED: Magnesium Sulf 4 GM/100 ML IV 4,000 MG/100 ML BAG IVPB ONE (08:35)
[2022-05-28] MEDS: Nystatin TOP POWDER 15 GM BTL TOPICAL SCH ×2 (09:14→15:20)
[2022-05-28] MEDS: Fluconazole 400 MG IVPREMIX 400 MG/200 ML BAG IVPB SCH ×2 (11:31→15:20)
[2022-05-28 15:02] VITALS: BP 106/73
== END 2022-05-28 17:20 | disposition home or self-care (01) ==
LOC: ED 20:17 → EDHOLD 20:17 → SUATTDRO 05-27 00:57 → EDHOLD 05-27 14:59 → MED 05-27 15:04
PROVIDERS: ADMIT Student in an Organized Health Care Education/Training Program; ATTEND Internal Medicine